=== PATIENT | female | born 1935 | race Caucasian/White ===

== ENCOUNTER 2016-07-17 12:32 | Inpatient (IN) | payer MEDICARE ==
[~2016-07-17] VITALS: Ht 160 cm; Wt 46.4 kg
[2016-07-17] VITALS (13 sets, daily range): BP systolic 104–148; BP diastolic 56–92; PULSE 97–112; RESP 18–20; TEMP 97.6–98.1; O2SAT 95–99
[~2016-07-17 12:32] MED LIST: ADVAI250I PO; ALBU8I INH; ASPI81TA82 PO; ATOR40TA49 PO; BUSP5 PO; D31000CA PO; IPRA0.02 NEB; IRON325T2 PO; LATA.005%O BOTH EYES; VITA10002 PO; Z.0.OXYGENDME NC
[2016-07-17] MEDS ORDERED: methylPREDNISolone SOD SUCC 125 MG/2 ML VIAL IVP ONE (12:45)
[2016-07-17] MEDS ORDERED: SODIUM CHLORIDE 0.9% FLUSH 5 ML FLUSH IVF PRN ×2 (12:45→14:45)
[2016-07-17] MEDS ORDERED: MAGNESIUM SULFATE 1 GM PREMIX 100 ML IV ONE (13:00)
[2016-07-17] MEDS ORDERED: SODIUM CHLOR 0.9% 1000 ML INJ 1,000 ML IV ONE (13:00)
--- NOTE | 2016-07-17 13:00 | PD ---
HPI Chief Complaint: Respiratory Symptoms Time Seen by Provider: 12:44 Travel History International Travel<30 days: No Contact w/Intl Traveler<30days: No Traveled to known affect area: No History of Present Illness HPI Patient is an 80-year-old female with history of COPD who uses 2 L of oxygen continuously, presents to emergency room with complaints of COPD exacerbation. Patient reports that 3 days ago, she has been feeling increasingly short of breath and has been wheezing. Reports that she had increased productive cough with thick greenish yellow sputum. Patient denies fevers or chills. She reports that she tried using her nebulizer with no relief of symptoms. Patient denies chest pain. Reports short of breath at rest as well as on exertion. Patient denies any sick contacts. Patient reports that she still is a smoker at this time. PFSH Past Medical History Anemia: Yes Arthritis: Yes Asthma: No Autoimmune Disease: No Heart Rhythm Problems: No Cancer: Yes (LUNG; RECTAL) Cardiovascular Problems: No High Cholesterol: No Chemotherapy: Yes Chest Pain: No Congestive Heart Failure: No COPD: Yes (2L NC prn) Diabetes: No Diminished Hearing: No Gastrointestinal Disorders: No Glaucoma: Yes Genitourinary: No Hepatitis: No Hiatal Hernia: No Hypertension: Yes Immune Disorder: No Implanted Vascular Access Dvce: No Musculoskeletal: Yes Neurologic: No Psychiatric: No Reproductive: No Respiratory: Yes ( HX LUNG CANCER, RIGHT LOWER LOBECTOMY) Immunizations Current: No Radiation Therapy: Yes (LAST TREATMENT 2008) Sleep Apnea: No Thyroid Disease: Yes (PARATHYROID SURGERY) Menopausal: Yes : 2 Para: 2 Past Surgical History Abdominal Surgery: No Cardiac Surgery: No Ear Surgery: No Endocrine Surgery: Yes (PARATHYROID) Eye Surgery: Yes (BILATERAL CATARACT SX; LASER SX FOR GLAUCOMA) Genitourinary Surgery: No Gynecologic Surgery: Yes (D&C) Hysterectomy: No Neurologic Surgery: No Oral Surgery: No Pacemaker: No Thoracic Surgery: Yes (right and middle lobectomy 1994) Other Surgery: Yes (3/4 OF RIGHT LUNG REMOVED DUE TO CA) Social History Alcohol Use: No Tobacco Use: Yes (2-4 CIGS A DAY) Substance Use: No Allergies-Medications (Allergen,Severity, Reaction): Coded Allergies: Penicillin (Verified Allergy, Severe, Hives, 05/10/16) Reported Meds & Prescriptions Reported Meds & Active Scripts Active Reported [Oxygen ] 2 Liter INH CONTINUOUS Ipratropium Neb (Ipratropium [place]) 0.5 Mg/2.5 Ml Amp 0.5 Mg NEB Q4HR NEB PRN Vitamin B12 Tr (Cyanocobalamin) 1,000 Mcg Tab 1,000 Mcg PO DAILY Vitamin D3 (Cholecalciferol) 1,000 Unit Tab 1,000 Units PO HS Aspirin 81 (Aspirin) 81 Mg Tabdr 81 Mg PO HS Ventolin Hfa 18 GM Inh (Albuterol Sulfate) 90 Mcg/Act Aer 2 Puff INH Q4H PRN Buspirone (Buspirone HCl) 5 Mg Tab 5 Mg PO TID Furosemide 20 Mg Tab 20 Mg PO DAILY PRN Klor-Con 8 (Potassium Chloride) 8 Meq Tab 8 Meq PO DAILY PRN Xalatan Opth Drops (Latanoprost) 0.005% Drops 1 Drop EACH EYE HS Advair Diskus Inh (Fluticasone-Salmeterol Inh) 250-50 Mcg/Blist Aer 1 Puff INH BID Rinse mouth after use. Review of Systems General / Constitutional: No: Fever, Chills Eyes: No: Visual changes HENT: No: Headaches Cardiovascular: No: Chest Pain or Discomfort, Palpitations Respiratory: Positive: Cough, Shortness of Breath, Wheezing Gastrointestinal: No: Abdominal Pain Genitourinary: No: Dysuria Musculoskeletal: No: Pain Skin: No Rash Neurologic: No: Weakness Psychiatric: No: Depression Endocrine: No: Polydipsia Hematologic/Lymphatic: No: Easy Bruising Physical Exam Narrative GENERAL: Patient in moderate distress SKIN: Warm and dry. HEAD: Atraumatic. Normocephalic. EYES: Pupils equal and round. No scleral icterus. No injection or drainage. ENT: No nasal bleeding or discharge. Mucous membranes pink and moist. NECK: Trachea midline. No JVD. CARDIOVASCULAR: Patient tachycardic, No murmur appreciated. RESPIRATORY: Patient with scattered wheezing, patient with increased work of breathing with intercostal retractions on evaluation GASTROINTESTINAL: Abdomen soft, non-tender, nondistended. Hepatic and splenic margins not palpable. MUSCULOSKELETAL: No obvious deformities. No clubbing. No cyanosis. No edema. NEUROLOGICAL: Awake and alert. No obvious cranial nerve deficits. Motor grossly within normal limits. Normal speech. PSYCHIATRIC: Appropriate mood and affect; insight and judgment normal. Data Data Last Documented VS Vital Signs Date Time Temp Pulse Resp B/P Pulse Ox O2 Delivery O2 Flow Rate FiO2 07/17/16 13:14 98 Nasal Cannula 2.00 07/17/16 13:05 20 07/17/16 12:55 102 07/17/16 12:50 98.0 144/80 Orders Complete Blood Count With Diff (07/17/16 12:45) Comprehensive Metabolic Panel (07/17/16 12:45) B-Type Natriuretic Peptide (07/17/16 12:45) Act Partial Throm Time (Ptt) (07/17/16 12:45) Prothrombin Time / Inr (Pt) (07/17/16 12:45) Ckmb (Isoenzyme) Profile (07/17/16 12:45) Troponin I (07/17/16 12:45) Arterial Blood Gas (Abg) (07/17/16 12:45) Urinalysis - C+S If Indicated (07/17/16 12:45) Influenzae A/B Antigen (07/17/16 12:45) Blood Culture (07/17/16 12:45) Iv Access Insert/Monitor (07/17/16 12:45) Electrocardiogram (07/17/16 12:45) Ecg Monitoring (07/17/16 12:45) Oximetry (07/17/16 12:45) Oxygen Administration (07/17/16 12:45) Chest, Single Ap (07/17/16 12:45) Sodium Chloride 0.9% Flush (Ns Flush) (07/17/16 12:45) Methylprednisolone So Succ Inj (Solumedr (07/17/16 12:45) Albuterol-Ipratropium Neb (Duoneb Neb) (07/17/16 12:45) Lactic Acid Sepsis Protocol (07/17/16 12:50) Magnesium Sulfate 1 Gm Premix (Magnesium (07/17/16 13:00) Sodium Chlor 0.9% 1000 Ml Inj (Ns 1000 M (07/17/16 13:00) Levofloxacin 750 Mg Premix Inj (Levaquin (07/17/16 14:15) Labs Laboratory Tests Test 07/17/16 07/17/16 07/17/16 13:00 13:05 14:08 White Blood Count 7.4 TH/MM3 Red Blood Count 4.38 MIL/MM3 Hemoglobin 13.2 GM/DL Hematocrit 40.4 % Mean Corpuscular Volume 92.1 FL Mean Corpuscular Hemoglobin 30.2 PG Mean Corpuscular Hemoglobin 32.8 % Concent Red Cell Distribution Width 14.9 % Platelet Count 209 TH/MM3 Mean Platelet Volume 7.9 FL Neutrophils (%) (Auto) 79.6 % Lymphocytes (%) (Auto) 13.9 % Monocytes (%) (Auto) 5.9 % Eosinophils (%) (Auto) 0.1 % Basophils (%) (Auto) 0.5 % Neutrophils # (Auto) 6.0 TH/MM3 Lymphocytes # (Auto) 1.0 TH/MM3 Monocytes # (Auto) 0.4 TH/MM3 Eosinophils # (Auto) 0.0 TH/MM3 Basophils # (Auto) 0.0 TH/MM3 CBC Comment DIFF FINAL Differential Comment Prothrombin Time 10.5 SEC Prothromb Time International 1.0 RATIO Ratio Activated Partial 27.7 SEC Thromboplast Time Sodium Level 140 MEQ/L Potassium Level 4.1 MEQ/L Chloride Level 101 MEQ/L Carbon Dioxide Level 31.3 MEQ/L Anion Gap 8 MEQ/L Blood Urea Nitrogen 9 MG/DL Creatinine 0.82 MG/DL Estimat Glomerular Filtration 67 ML/MIN Rate Random Glucose 170 MG/DL Lactic Acid Level 2.2 mmol/L Calcium Level 9.1 MG/DL Total Bilirubin 0.4 MG/DL Aspartate Amino Transf 15 U/L (AST/SGOT) Alanine Aminotransferase 16 U/L (ALT/SGPT) Alkaline Phosphatase 77 U/L Total Creatine Kinase 53 U/L Troponin I LESS THAN 0.02 NG/ML B-Type Natriuretic Peptide 174 PG/ML Total Protein 7.7 GM/DL Albumin 3.5 GM/DL Blood Gas Puncture Site LT RADIAL Blood Gas Patient Temperature 98.6 Blood Gas HCO3 28 mmol/L Blood Gas Base Excess 3.8 mmol/L Blood Gas Oxygen Saturation 94 % Arterial Blood pH 7.41 Arterial Blood Partial 46 mmHG Pressure CO2 Arterial Blood Partial 86 mmHG Pressure O2 Arterial Blood Oxygen Content 17.2 Vol % Arterial Blood 1.7 % Carboxyhemoglobin Arterial Blood Methemoglobin 1.1 % Blood Gas Hemoglobin 13.0 G/DL Oxygen Delivery Device NASAL CANNULA Blood Gas Liter Flow 2 L/M Urine Collection Type CLEAN CATCH Urine Color YELLOW Urine Turbidity CLEAR Urine pH 6.5 Urine Specific [place] 1.005 Urine Protein NEG mg/dL Urine Glucose (UA) NEG mg/dL Urine Ketones NEG mg/dL Urine Occult Blood NEG Urine Nitrite NEG Urine Bilirubin NEG Urine Leukocyte Esterase NEG Urine RBC 0-3 /hpf Urine WBC 0-2 /hpf Microscopic Urinalysis Comment CULT NOT INDICATED MDM Medical Decision Making Medical Screen Exam Complete: Yes Emergency Medical Condition: Yes Interpretation(s) EKG at 1235: Sinus tachycardia at 112 bpm, QT/QTc 318/409, nonspecific ST-T wave changes Vital Signs Date Time Temp Pulse Resp B/P Pulse Ox O2 Delivery O2 Flow Rate FiO2 07/17/16 12:50 98.0 102 20 144/80 97 Laboratory Tests Test 07/17/16 07/17/16 13:00 13:05 White Blood Count 7.4 TH/MM3 (4.0-11.0) Red Blood Count 4.38 MIL/MM3 (4.00-5.30) Hemoglobin 13.2 GM/DL (11.6-15.3) Hematocrit 40.4 % (35.0-46.0) Mean Corpuscular Volume 92.1 FL (80.0-100.0) Mean Corpuscular Hemoglobin 30.2 PG (27.0-34.0) Mean Corpuscular Hemoglobin 32.8 % Concent (32.0-36.0) Red Cell Distribution Width 14.9 % (11.6-17.2) Platelet Count 209 TH/MM3 (150-450) Mean Platelet Volume 7.9 FL (7.0-11.0) Neutrophils (%) (Auto) 79.6 % (16.0-70.0) Lymphocytes (%) (Auto) 13.9 % (9.0-44.0) Monocytes (%) (Auto) 5.9 % (0.0-8.0) Eosinophils (%) (Auto) 0.1 % (0.0-4.0) Basophils (%) (Auto) 0.5 % (0.0-2.0) Neutrophils # (Auto) 6.0 TH/MM3 (1.8-7.7) Lymphocytes # (Auto) 1.0 TH/MM3 (1.0-4.8) Monocytes # (Auto) 0.4 TH/MM3 (0-0.9) Eosinophils # (Auto) 0.0 TH/MM3 (0-0.4) Basophils # (Auto) 0.0 TH/MM3 (0-0.2) CBC Comment DIFF FINAL Differential Comment Prothrombin Time 10.5 SEC (9.8-11.6) Prothromb Time International 1.0 RATIO Ratio Activated Partial 27.7 SEC Thromboplast Time (24.3-30.1) Sodium Level 140 MEQ/L (136-145) Potassium Level 4.1 MEQ/L (3.5-5.1) Chloride Level 101 MEQ/L (98-107) Carbon Dioxide Level 31.3 MEQ/L (21.0-32.0) Anion Gap 8 MEQ/L (5-15) Blood Urea Nitrogen 9 MG/DL (7-18) Creatinine 0.82 MG/DL (0.50-1.00) Estimat Glomerular Filtration 67 ML/MIN (>89) Rate Random Glucose 170 MG/DL (74-106) Lactic Acid Level 2.2 mmol/L (0.4-2.0) Calcium Level 9.1 MG/DL (8.5-10.1) Total Bilirubin 0.4 MG/DL (0.2-1.0) Aspartate Amino Transf 15 U/L (15-37) (AST/SGOT) Alanine Aminotransferase 16 U/L (10-53) (ALT/SGPT) Alkaline Phosphatase 77 U/L (45-117) Total Creatine Kinase 53 U/L (26-192) Troponin I LESS THAN 0.02 NG/ML (0.02-0.05) B-Type Natriuretic Peptide 174 PG/ML (0-100) Total Protein 7.7 GM/DL (6.4-8.2) Albumin 3.5 GM/DL (3.4-5.0) Blood Gas Puncture Site LT RADIAL Blood Gas Patient Temperature 98.6 Blood Gas HCO3 28 mmol/L (22-26) Blood Gas Base Excess 3.8 mmol/L (-2-2) Blood Gas Oxygen Saturation 94 % (90-100) Arterial Blood pH 7.41 (7.380-7.420) Arterial Blood Partial 46 mmHG (38-42) Pressure CO2 Arterial Blood Partial 86 mmHG Pressure O2 (61-120) Arterial Blood Oxygen Content 17.2 Vol % (12.0-20.0) Arterial Blood 1.7 % (0-4) Carboxyhemoglobin Arterial Blood Methemoglobin 1.1 % (0-2) Blood Gas Hemoglobin 13.0 G/DL (12.0-16.0) Oxygen Delivery Device NASAL CANNULA Blood Gas Liter Flow 2 L/M Last Impressions Chest X-Ray 07/17/16 1245 Signed Impressions: Service Date/Time: Sunday, July 17, 2016 13:07 - CONCLUSION: Right basilar airspace disease and small right effusion suspected otherwise stable. Holden Rizvi MD Differential Diagnosis COPD exacerbation, pneumonia, influenza, arrhythmias, pneumothorax, electrolyte abnormality, CHF exacerbation Narrative Course Patient is a 80-year-old female with history of COPD who uses 2 L nasal cannula at all times, presents to emergency room with complaints of cough, wheezing, shortness of breath with past 3 days. Upon arrival to the emergency room, patient placed on continuous pulse oximetry as well as continuous cardiac monitoring. EKG obtained which showed sinus tachycardia with not specific ST-T wave changes. Patient afebrile in the emergency room, patient tachycardic with heart rate in 102, IV placed, IV fluids ordered for patient as well as steroids and nebulizer treatments CBC, BMP, blood cultures, influenza, x-ray of chest ordered for further evaluation of symptoms Patient reevaluated, patient still with increased wheezing, patient reports that she is not feeling any better, patient has received IV steroids as well as 3 duo nebs and 1 g of IV magnesium. CBC: wnl BMP: wnl, gfr 67 Lactate: 2.2, mildly elevated, plan to repeat lactate after ivf, pt has been pancultured trop less than 0.02 BNP 174 UA: Negative leuk esterase negative nitrites Influenza negative X-ray of chest: Right basilar airspace disease and small right effusion Patient reports that she is not feeling better, another neb treatment ordered for her, will continue to monitor pt Physician Communication Physician Communication case reviewed with Dr Alfred who accepts pt to service Diagnosis Primary Impression: COPD (chronic obstructive pulmonary disease) with acute bronchitis Admitting Information Admitting Physician Requests: Racquel Crockett DO Jul 17, 2016 13:00
[2016-07-17 13:05] LABS: BASOPHIL % 0.5 % (0.0-2.0); EOSINOPHIL % 0.1 % (0.0-4.0); HEMATOCRIT 40.4 % (35.0-46.0); HEMO FLAGS DIFF FINAL; LYMPH % 13.9 % (9.0-44.0); MEAN CELL VOLUME 92.1 FL (80.0-100.0); MEAN CORPUSCULAR HEMOGLOBIN 30.2 PG (27.0-34.0); MEAN CORPUSCULAR HGB CONC 32.8 % (32.0-36.0); MONO % 5.9 % (0.0-8.0); NEUT % 79.6 % (16.0-70.0); PLATELET COUNT 209 TH/MM3 (150-450); RED BLOOD COUNT 4.38 MIL/MM3 (4.00-5.30); RED CELL DISTRIBUTION WIDTH 14.9 % (11.6-17.2); WHITE BLOOD COUNT 7.4 TH/MM3 (4.0-11.0)
[2016-07-17] MEDS ORDERED: LATA.005%O EACH EYE (13:05)
[2016-07-17] MEDS ORDERED: VITA10004 PO (13:05)
[2016-07-17] MEDS ORDERED: ADVA250A INH (13:05)
[2016-07-17] MEDS ORDERED: IPRA0.02 NEB (13:05)
[2016-07-17] MEDS ORDERED: VITA100018 PO (13:05)
[2016-07-17] MEDS ORDERED: ASPI-110 PO (13:05)
[2016-07-17] MEDS ORDERED: BUSP5TAB PO (13:05)
[2016-07-17] MEDS ORDERED: FURO20TA PO (13:05)
[2016-07-17] MEDS ORDERED: KLOR8TAB PO (13:05)
[2016-07-17] MEDS ORDERED: VENTAER INH (13:05)
[2016-07-17] MEDS ORDERED: Oxygen INH (13:05)
[2016-07-17] MEDS: RESP: ALBUTEROL 2.5 MG/IPRATROPIUM 0.5 MG NEB (SCH) INH ×4 (13:09→19:17)
[2016-07-17 13:13] LABS: CHLORIDE 101 MEQ/L (98-107); POTASSIUM 4.1 MEQ/L (3.5-5.1); SODIUM (NA) 140 MEQ/L (136-145)
[2016-07-17 13:15] LABS: BLOOD GAS BASE EXCESS 3.8 mmol/L (-2-2); BLOOD GAS CARBOXYHEMOGLOBIN 1.7 % (0-4); BLOOD GAS HCO3 28 mmol/L (22-26); BLOOD GAS METHEMOGLOBIN 1.1 % (0-2); BLOOD GAS O2 HGB SATURATION 94 % (90-100); BLOOD GAS OXYGEN CONTENT 17.2 Vol % (12.0-20.0); BLOOD GAS PCO2 46 mmHG (38-42); BLOOD GAS PO2 86 mmHG (61-120); CRITICAL VALUE NO; DRAW SITE LT RADIAL; LITER FLOW 2 L/M; NUMBER OF ARTERIAL PUNCTURES 1; OXYGEN DEVICE NASAL CANNULA; STAT YES; TEMP CORR TO 98.6; ULNAR PULSE PRESENT
[2016-07-17 13:16] LABS: ANION GAP 8 MEQ/L (5-15); BICARBONATE 31.3 MEQ/L (21.0-32.0)
[2016-07-17 13:17] LABS: BLOOD UREA NITROGEN 9 MG/DL (7-18)
[2016-07-17 13:18] LABS: APTT (PATIENT) 27.7 SEC (24.3-30.1); PROTHROMBIN TIME - PATIENT 10.5 SEC (9.8-11.6)
[2016-07-17 13:19] LABS: ALT (GPT) 16 U/L (10-53)
[2016-07-17 13:20] LABS: AST (GOT) 15 U/L (15-37); GLOMERULAR FILTRATION RATE 67 ML/MIN (>89)
[2016-07-17 13:21] LABS: TOTAL BILIRUBIN ADULT 0.4 MG/DL (0.2-1.0)
[2016-07-17 13:22] LABS: ALKALINE PHOSPHATASE 77 U/L (45-117)
[2016-07-17 13:24] LABS: CREATINE KINASE 53 U/L (26-192)
--- NOTE | 2016-07-17 13:24 | RADHPO ---
EXAM DATE/TIME: 07/17/2016 13:07 [place] COMPARISON: CHEST SINGLE AP, May 10, 2016, 12:40. INDICATIONS : Short of breath. Wheezing. MEDICAL HISTORY : Chronic obstructive pulmonary disease. Carcinoma, lung. SURGICAL HISTORY : Lobectomy. ENCOUNTER: Subsequent ACUITY: 3 days PAIN SCORE: 1/10 LOCATION: Bilateral chest FINDINGS: There is scarring in the left upper lung zone with cephalad retraction of the hilum, cardiomegaly and aortic calcification. There is blunting of the right lateral costophrenic angle present. Minimal rig ht basilar airspace disease. CONCLUSION: Right basilar airspace disease and small right effusion suspected otherwise stable. Holden Rizvi MD on July 17, 2016 at 13:22 Board Certified Radiologist. This report was verified electronically.
[2016-07-17] MEDS ORDERED: LEVOFLOXACIN 750 MG PREMIX INJ 150 ML IV ONE (14:15)
[2016-07-17 14:16] LABS: BLOOD, URINE NEG (NEG); GLUCOSE,URINE NEG (NEG); KETONE, URINE NEG (NEG); METHOD OF COLLECTION CLEAN CATCH; NITRITE,URINE NEG (NEG); PH, URINE 6.5 (5.0-8.5)
[2016-07-17 14:17] LABS: URINE COLOR YELLOW (YELLW/STRAW)
[2016-07-17 14:20] LABS: COMMENT (UR) CULT NOT INDICATED; CULTURE IF INDICATED CULT NOT INDICATED; RBC, URINE 0-3 /hpf (0-3); WBC, URINE 0-2 /hpf (0-5)
[2016-07-17] MEDS: RESP: ALBUTEROL 2.5 MG/3 ML NEB (SCH) INH ×2 (14:41→14:42)
[2016-07-17] MEDS ORDERED: RESP: ALBUTEROL 2.5 MG/3 ML NEB (SCH) NEB ONE (14:45)
[2016-07-17] MEDS ORDERED: RESP: ALBUTEROL 2.5 MG/3 ML NEB (PRN) INH (14:45)
[2016-07-17 15:00] LABS: LACTIC ACID GHOST NOT REPORTABLE
[2016-07-17] MEDS: HEPARIN SODIUM - SQ 10,000 UNITS/ML VIAL SQ SCH (15:01)
--- NOTE | 2016-07-17 16:02 | HHI.HP ---
cc: Ania Helm MD [facility] Unknown Admission Diagnosis COPD exacerbation Diagnoses: (1) COPD exacerbation Diagnosis: Principal (2) Hypertension (3) History of lung cancer Chief Complaint: Dyspnea Travel History International Travel<30 Days: No Contact w/Intl Traveler <30 Da: No Traveled to Known Affected Are: No History of Present Illness The patient is an 80-year-old female with history of COPD on chronic oxygen supplementation at home, 2 L continuous. She presented to the emergency department with complaint of worsening shortness of breath over the past 3 days. She has noted increase wheezes as well. Cough is productive of thick greenish/yellowish sputum. Denies fever, chills, night sweats. Denies chest pain. She does continue to smoke 2 cigarettes per day. Review of Systems Constitutional: DENIES: Fever, Chills, Night Sweats Eyes: DENIES: Blurred vision, Vision loss Ears, nose, mouth, throat: DENIES: Hearing loss Respiratory: COMPLAINS OF: Cough, Wheezing, Sputum production, Shortness of breath Cardiovascular: COMPLAINS OF: Dyspnea on Exertion, DENIES: Chest pain, Palpitations, Lower Extremity Edema Gastrointestinal: DENIES: Abdominal pain, Constipation, Diarrhea, Nausea, Vomiting Genitourinary: DENIES: Urinary frequency, Urinary incontinence, Urgency, Hematuria, Dysuria, Nocturia Musculoskeletal: DENIES: Joint pain, Muscle aches Integumentary: DENIES: Pruritus, Rash Hematologic/lymphatic: DENIES: Bruising Neurologic: DENIES: Headache Past Family Social History Past Medical History COPD History of lung cancer Hypertension Past Surgical History Right lung lobectomy Bilateral cataract surgery Parathyroid surgery D&C Reported Medications [Oxygen ] 2 Liter INH CONTINUOUS Ipratropium Neb (Ipratropium [place]) 0.5 Mg/2.5 Ml Amp 0.5 Mg NEB Q4HR NEB PRN Vitamin B12 Tr (Cyanocobalamin) 1,000 Mcg Tab 1,000 Mcg PO DAILY Vitamin D3 (Cholecalciferol) 1,000 Unit Tab 1,000 Units PO HS Aspirin 81 (Aspirin) 81 Mg Tabdr 81 Mg PO HS Ventolin Hfa 18 GM Inh (Albuterol Sulfate) 90 Mcg/Act Aer 2 Puff INH Q4H PRN Buspirone (Buspirone HCl) 5 Mg Tab 5 Mg PO TID Furosemide 20 Mg Tab 20 Mg PO DAILY PRN Klor-Con 8 (Potassium Chloride) 8 Meq Tab 8 Meq PO DAILY PRN Xalatan Opth Drops (Latanoprost) 0.005% Drops 1 Drop EACH EYE HS Advair Diskus Inh (Fluticasone-Salmeterol Inh) 250-50 Mcg/Blist Aer 1 Puff INH BID Rinse mouth after use. Allergies: Coded Allergies: Penicillin (Verified Allergy, Severe, Hives, 05/10/16) Family History Heart disease Social History Smokes 2 cigarettes per day. Had smoked 1 pack per day for more than 50 years. Denies alcohol or illicit drug use. Physical Exam Vital Signs Vital Signs Date Time Temp Pulse Resp B/P Pulse Ox O2 Delivery O2 Flow Rate FiO2 07/17/16 13:14 98 Nasal Cannula 2.00 07/17/16 13:05 20 99 Nasal Cannula 2 07/17/16 13:05 99 Nasal Cannula 2 07/17/16 12:55 102 20 99 Nasal Cannula 2 07/17/16 12:50 98.0 102 20 144/80 97 Physical Exam GENERAL: Thin elderly female in no acute distress. HEENT: Normocephalic, atraumatic. Pupils equal, round and reactive. Extraocular movements intact. No scleral icterus. No injection or drainage. Oropharynx is clear. Mucous membranes are moist. CARDIOVASCULAR: Regular rate and rhythm without murmurs, gallops, or rubs. RESPIRATORY: Diffuse wheeze. Breathing is somewhat labored.. GASTROINTESTINAL: Abdomen soft, non-tender, nondistended. EXTREMITIES: No lower extremity edema. No calf tenderness. PSYCH: Alert and oriented x 3. Laboratory Laboratory Tests Test 07/17/16 07/17/16 07/17/16 13:00 13:05 14:08 White Blood Count 7.4 Red Blood Count 4.38 Hemoglobin 13.2 Hematocrit 40.4 Mean Corpuscular Volume 92.1 Mean Corpuscular Hemoglobin 30.2 Mean Corpuscular Hemoglobin 32.8 Concent Red Cell Distribution Width 14.9 Platelet Count 209 Mean Platelet Volume 7.9 Neutrophils (%) (Auto) 79.6 Lymphocytes (%) (Auto) 13.9 Monocytes (%) (Auto) 5.9 Eosinophils (%) (Auto) 0.1 Basophils (%) (Auto) 0.5 Neutrophils # (Auto) 6.0 Lymphocytes # (Auto) 1.0 Monocytes # (Auto) 0.4 Eosinophils # (Auto) 0.0 Basophils # (Auto) 0.0 CBC Comment DIFF FINAL Differential Comment Prothrombin Time 10.5 Prothromb Time International 1.0 Ratio Activated Partial 27.7 Thromboplast Time Sodium Level 140 Potassium Level 4.1 Chloride Level 101 Carbon Dioxide Level 31.3 Anion Gap 8 Blood Urea Nitrogen 9 Creatinine 0.82 Estimat Glomerular Filtration 67 Rate Random Glucose 170 Lactic Acid Level 2.2 Calcium Level 9.1 Total Bilirubin 0.4 Aspartate Amino Transf 15 (AST/SGOT) Alanine Aminotransferase 16 (ALT/SGPT) Alkaline Phosphatase 77 Total Creatine Kinase 53 Troponin I LESS THAN 0.02 B-Type Natriuretic Peptide 174 Total Protein 7.7 Albumin 3.5 Blood Gas Puncture Site LT RADIAL Blood Gas Patient Temperature 98.6 Blood Gas HCO3 28 Blood Gas Base Excess 3.8 Blood Gas Oxygen Saturation 94 Arterial Blood pH 7.41 Arterial Blood Partial 46 Pressure CO2 Arterial Blood Partial 86 Pressure O2 Arterial Blood Oxygen Content 17.2 Arterial Blood 1.7 Carboxyhemoglobin Arterial Blood Methemoglobin 1.1 Blood Gas Hemoglobin 13.0 Oxygen Delivery Device NASAL CANNULA Blood Gas Liter Flow 2 Urine Collection Type CLEAN CATCH Urine Color YELLOW Urine Turbidity CLEAR Urine pH 6.5 Urine Specific [place] 1.005 Urine Protein NEG Urine Glucose (UA) NEG Urine Ketones NEG Urine Occult Blood NEG Urine Nitrite NEG Urine Bilirubin NEG Urine Leukocyte Esterase NEG Urine RBC 0-3 Urine WBC 0-2 Microscopic Urinalysis Comment CULT NOT INDICATED Date/Time Procedure Status Source Growth 07/17/16 14:00 Influenza Types A,B Antigen (DAGOBERTO) - Final Complete Nasal Aspirate NEGATIVE FOR FLU A AND B ANTIGEN.... 07/17/16 13:02 Aerobic Blood Culture Received Blood Peripheral Pending 07/17/16 13:02 Anaerobic Blood Culture Received Blood Peripheral Pending Result Diagram: 07/17/16 1300 07/17/16 1300 Imaging Last Impressions Chest X-Ray 07/17/16 1245 Signed Impressions: Service Date/Time: Sunday, July 17, 2016 13:07 - CONCLUSION: Right basilar airspace disease and small right effusion suspected otherwise stable. Holden Rizvi MD Assessment and Plan Assessment and Plan 1. COPD exacerbation: Continue steroids, oxygen, bronchodilators. 2. Pneumonia: Right basilar airspace disease on chest x-ray. Continue antibiotics, oxygen. 3. History of lung cancer: Follow-up with oncology as outpatient. 4. DVT prophylaxis: Heparin. Abdi Alfred MD Jul 17, 2016 16:02
[2016-07-17] MEDS: busPIRone HCL 5 MG TAB PO SCH (18:01)
[2016-07-17] MEDS: BUDESONIDE-FORMOTEROL 160/4.5 MCG INHALER INH SCH (20:52)
[2016-07-17] MEDS: SODIUM CHLORIDE 0.9% FLUSH 5 ML FLUSH IVF SCH (20:52)
[2016-07-17] MEDS: methylPREDNISolone SOD SUCC 125 MG/2 ML VIAL IVP SCH (20:53)
[2016-07-17] MEDS: LATANOPROST 0.005% OPHT SOLN 2.5 ML BTL EACH EYE SCH (20:53)
[2016-07-17] MEDS: CHOLECALCIFEROL (VIT D3) 1000 UNIT TAB PO SCH (20:53)
[2016-07-17] MEDS: ASPIRIN EC 81 MG TABEC PO SCH (20:59)
[2016-07-18] VITALS (8 sets, daily range): BP systolic 130–160; BP diastolic 73–106; PULSE 101–110; RESP 16–20; TEMP 95.5–98.3; O2SAT 92–99
[2016-07-18] MEDS: HEPARIN SODIUM - SQ 10,000 UNITS/ML VIAL SQ SCH ×2 (02:28→15:01)
[2016-07-18] MEDS: methylPREDNISolone SOD SUCC 125 MG/2 ML VIAL IVP SCH ×4 (02:28→22:47)
[2016-07-18] MEDS: RESP: ALBUTEROL 2.5 MG/IPRATROPIUM 0.5 MG NEB (SCH) INH ×4 (04:00→21:55)
[2016-07-18 06:26] LABS: POTASSIUM 4.1 MEQ/L (3.5-5.1)
[2016-07-18 06:34] LABS: BICARBONATE 28.1 MEQ/L (21.0-32.0)
[2016-07-18] MEDS: BUDESONIDE-FORMOTEROL 160/4.5 MCG INHALER INH SCH ×2 (08:59→22:45)
[2016-07-18] MEDS: busPIRone HCL 5 MG TAB PO SCH ×3 (09:00→17:45)
[2016-07-18] MEDS: SODIUM CHLORIDE 0.9% FLUSH 5 ML FLUSH IVF SCH ×2 (09:00→22:48)
[2016-07-18] MEDS: CYANOCOBALAMIN 1,000 MCG TAB PO SCH (09:00)
[2016-07-18] MEDS: LEVOFLOXACIN 750 MG PREMIX INJ 150 ML IV SCH (12:16)
--- NOTE | 2016-07-18 14:47 | HHI.PR ---
Subjective Remarks Mrs. Swanson states that she does not feel any better than today other than she feels a little stronger and was able to get up to the bedside commode. She feels shaky and unsteady on her feet. She is still short of breath with coughing and wheeze. Objective Vitals Vital Signs Date Time Temp Pulse Resp B/P Pulse Ox O2 Delivery O2 Flow Rate FiO2 07/18/16 09:37 98 Nasal Cannula 2.00 07/18/16 09:00 101 07/18/16 08:00 97.6 102 18 130/73 96 07/18/16 04:00 98.3 105 16 138/75 94 07/17/16 23:57 97.6 97 20 148/92 97 07/17/16 20:10 103 07/17/16 20:00 98.1 102 18 128/75 96 07/17/16 19:19 95 Nasal Cannula 2.00 07/17/16 18:00 112 20 136/67 96 Nasal Cannula 2 07/17/16 17:00 103 20 125/74 96 Nasal Cannula 2 07/17/16 16:00 110 20 104/59 97 Nasal Cannula 2 07/17/16 15:20 20 97 Nasal Cannula 2 07/17/16 15:00 97 20 110/56 97 Nasal Cannula 2 I/O 07/17/16 07/17/16 07/17/16 07/18/16 07/18/16 07/18/16 07:00 15:00 23:00 07:00 15:00 23:00 Intake Total 1250 ml 720 ml Output Total 300 ml Balance 1250 ml 420 ml Intake Oral 720 ml IV Total 1250 ml Output Urine Total 300 ml # Voids 3 # Bowel Movements 0 Result Diagram: 07/17/16 1300 07/18/16 0555 Objective Remarks GENERAL: Very pleasant petite, elderly female in no apparent distress. SKIN: Warm and dry. HEAD: Normocephalic. EYES: No scleral icterus. No injection or drainage. NECK: Supple, trachea midline. No JVD or lymphadenopathy. CARDIOVASCULAR: Regular rate and rhythm without murmurs, gallops, or rubs. RESPIRATORY: The patient has prolonged expiratory phase with poor air exchange with scattered rhonchi bilaterally. No wheezing. Mild increased work of breathing on nasal cannula. Breath sounds equal bilaterally. GASTROINTESTINAL: Abdomen soft, non-tender, nondistended. EXTREMITIES: No cyanosis, or edema. NEUROLOGICAL: Awake, alert, and oriented x 3. Non-focal. A/P Problem List: (1) COPD exacerbation ICD Code: J44.1 Status: Acute (2) Hypertension ICD Code: I10 Status: Acute (3) History of lung cancer ICD Code: Z85.118 Status: Acute Assessment and Plan 1. COPD exacerbation with chronic respiratory failure on 2 L nasal cannula continuously at home: No improvement today. We'll continue Solu-Medrol, bronchodilators, Levaquin and oxygen via nasal cannula. 2. Right lower lobe pneumonia. Will check sputum cultures. Will continue Levaquin. 3. History of lung cancer with right lung lobectomy. 4. Anxiety. Continue Buspar. 5. DVT prophylaxis: Heparin. Kate Rivero MD Jul 18, 2016 14:47
--- NOTE | 2016-07-18 17:43 | EKG ---
Date Performed: 07/17/2016 Time Performed: 12:35:46 PTAGE: 80 years EKG: Sinus tachycardia with PVC(s) with PAC(s) Short ME interval Possible left atrial abnormalit y Rightward axis Inferior ST-T changes are nonspecific When compared to previous tracing, the patient is now Tachycardic, and the ST segment has improved. Borderline ECG PREVIOUS TRACING : 05/10/2016 20.53 DOCTOR: Lanette Estrada Interpretating Date/Time 07/18/2016 17:41:22
[2016-07-18] MEDS: ASPIRIN EC 81 MG TABEC PO SCH (22:45)
[2016-07-18] MEDS: LATANOPROST 0.005% OPHT SOLN 2.5 ML BTL EACH EYE SCH (22:45)
[2016-07-18] MEDS: CHOLECALCIFEROL (VIT D3) 1000 UNIT TAB PO SCH (22:46)
[2016-07-19] VITALS (10 sets, daily range): BP systolic 137–147; BP diastolic 83–90; PULSE 77–122; RESP 17–23; TEMP 96.5–98; O2SAT 92–97
[2016-07-19] MEDS: methylPREDNISolone SOD SUCC 125 MG/2 ML VIAL IVP SCH ×2 (02:30→09:19)
[2016-07-19] MEDS: HEPARIN SODIUM - SQ 10,000 UNITS/ML VIAL SQ SCH ×2 (02:30→14:06)
[2016-07-19] MEDS: RESP: ALBUTEROL 2.5 MG/IPRATROPIUM 0.5 MG NEB (SCH) INH ×4 (04:40→21:26)
[2016-07-19] MEDS: BUDESONIDE-FORMOTEROL 160/4.5 MCG INHALER INH SCH ×2 (09:00→21:52)
[2016-07-19] MEDS: busPIRone HCL 5 MG TAB PO SCH ×3 (09:19→17:12)
[2016-07-19] MEDS: CYANOCOBALAMIN 1,000 MCG TAB PO SCH (09:19)
[2016-07-19] MEDS: SODIUM CHLORIDE 0.9% FLUSH 5 ML FLUSH IVF SCH ×2 (09:20→21:54)
[2016-07-19] MEDS: LEVOFLOXACIN 750 MG PREMIX INJ 150 ML IV SCH (12:00)
--- NOTE | 2016-07-19 12:05 | HHI.PR ---
Subjective Remarks Patient seen and examined today with Dr. Rivero. Patient states that her breathing is improved this morning. However she does feel her heart race whenever she exerts herself. Objective Vitals Vital Signs Date Time Temp Pulse Resp B/P Pulse Ox O2 Delivery O2 Flow Rate FiO2 07/19/16 09:33 97 Nasal Cannula 2.00 07/19/16 08:15 118 07/19/16 08:00 98.0 77 17 141/90 94 07/19/16 04:40 92 Nasal Cannula 2.00 07/19/16 04:00 97.4 109 23 137/83 94 07/19/16 00:00 97.6 122 22 147/88 94 07/18/16 21:55 92 Nasal Cannula 2.00 07/18/16 20:04 102 07/18/16 20:00 97.8 105 20 136/81 99 I/O 07/18/16 07/18/16 07/18/16 07/19/16 07/19/16 07/19/16 07:00 15:00 23:00 07:00 15:00 23:00 Intake Total 720 ml 825 ml 0 ml 0 ml Output Total 300 ml Balance 420 ml 825 ml 0 ml 0 ml Intake Oral 720 ml 650 ml IV Total 175 ml 0 ml 0 ml Output Urine Total 300 ml # Voids 3 5 2 2 # Bowel Movements 0 2 0 0 Result Diagram: 07/17/16 1300 07/18/16 0555 Objective Remarks GENERAL: Well-developed, well-nourished, in no acute distress. alert and orientated HEENT: Head is normocephalic without any lesions or masses noted. Facial features are symmetric. Eyes: Extraocular muscles are intact. Conjunctivae were clear. NECK: Supple without any masses. Trachea midline no deviation. No JVD, CARDIAC: Regular rhythm, regular rate. S1/S2 are heard. No murmurs gallops or rubs. LUNGS: Clear to auscultation bilaterally. No wheeze, rhonchi or rales. No use of accessory muscles on inspiration or expiration. ABDOMEN: Soft, nontender. Nondistended. Bowel sounds heard in all 4 quadrants. No organomegaly or masses. Negative rebound, negative guarding EXTREMITIES: No edema, pulses are equal bilaterally. No cyanosis or clubbing NEUROLOGY: Mood and affect appear appropriate. Cranial nerves II through XII grossly intact. Moving all extremities, speech is clear Urinary Catheter: No Vascular Central Line Catheter: No A/P Assessment and Plan COPD exacerbation with chronic respiratory failure on 2 L nasal cannula continuously at home: Patient does indicate improvement today. No longer has any wheeze. We will start to wean Solu-Medrol, continue bronchodilators, Levaquin and oxygen via nasal cannula. Right lower lobe pneumonia. Awaiting sputum culture. Will continue Levaquin. History of lung cancer with right lung lobectomy. Anxiety. Continue Buspar. Discharge Planning Discharge planning tomorrow if patient continues to improve Abdi Asher Jul 19, 2016 12:05
--- NOTE | 2016-07-19 12:13 | HHI.FF ---
Face to Face Verification Diagnosis: (1) COPD exacerbation (2) Dyspnea Physical Therapy Order: Evaluate and Treat, Improve ambulation, Strength and gait training Home Health Nursing Order: Medical education Signs/symptoms of disease process Oxygen administration education Nursing assessment with vital signs I have seen patient Chasity Swanson on 07/19/16. My clinical findings support the need for the requested home health care services because: Patient has SOB I certify that my clinical findings support that this patient is homebound because: Hx COPD- exertion dyspnea/weakness Abdi Asher Jul 19, 2016 12:12
[2016-07-19] MEDS: LATANOPROST 0.005% OPHT SOLN 2.5 ML BTL EACH EYE SCH (21:52)
[2016-07-19] MEDS: CHOLECALCIFEROL (VIT D3) 1000 UNIT TAB PO SCH (21:53)
[2016-07-19] MEDS: methylPREDNISolone SOD SUCC 40 MG/1 ML VIAL IV SCH (21:53)
[2016-07-19] MEDS: ASPIRIN EC 81 MG TABEC PO SCH (21:54)
[2016-07-20] VITALS: BP 149/92; PULSE 114; RESP 18; TEMP 97.2; O2SAT 95
[2016-07-20] MEDS: HEPARIN SODIUM - SQ 10,000 UNITS/ML VIAL SQ SCH (02:46)
[2016-07-20 04:00] VITALS: BP 126/80; PULSE 106; RESP 18; TEMP 96.5; O2SAT 95
[2016-07-20] MEDS: RESP: ALBUTEROL 2.5 MG/IPRATROPIUM 0.5 MG NEB (SCH) INH ×2 (04:00→10:12)
[2016-07-20 08:00] VITALS: BP 104/62; PULSE 109; RESP 16; TEMP 97.6; O2SAT 100
--- NOTE | 2016-07-20 09:40 | HHI.PR ---
Subjective Remarks Patient seen and examined today with Dr. Rivero. Patient states that her breathing is improved. Patient states that she ready to go home. Objective Vitals Vital Signs Date Time Temp Pulse Resp B/P Pulse Ox O2 Delivery O2 Flow Rate FiO2 07/20/16 04:00 96.5 106 18 126/80 95 07/20/16 00:00 97.2 114 18 149/92 95 07/19/16 21:23 97 Nasal Cannula 2.00 07/19/16 20:00 96.5 105 18 145/87 94 07/19/16 20:00 108 07/19/16 16:00 98.0 100 17 138/90 96 07/19/16 12:00 97.1 105 18 147/86 95 I/O 07/19/16 07/19/16 07/19/16 07/20/16 07/20/16 07/20/16 07:00 15:00 23:00 07:00 15:00 23:00 Intake Total 0 ml 150 ml Balance 0 ml 150 ml IV Total 0 ml 150 ml # Voids 2 # Bowel Movements 0 Result Diagram: 07/17/16 1300 07/18/16 0555 Objective Remarks GENERAL: Well-developed, well-nourished, in no acute distress. alert and orientated HEENT: Head is normocephalic without any lesions or masses noted. Facial features are symmetric. Eyes: Extraocular muscles are intact. Conjunctivae were clear. NECK: Supple without any masses. Trachea midline no deviation. No JVD, CARDIAC: Regular rhythm, regular rate. S1/S2 are heard. No murmurs gallops or rubs. LUNGS: Clear to auscultation bilaterally. No wheeze, rhonchi or rales. No use of accessory muscles on inspiration or expiration. ABDOMEN: Soft, nontender. Nondistended. Bowel sounds heard in all 4 quadrants. No organomegaly or masses. Negative rebound, negative guarding EXTREMITIES: No edema, pulses are equal bilaterally. No cyanosis or clubbing NEUROLOGY: Mood and affect appear appropriate. Cranial nerves II through XII grossly intact. Moving all extremities, speech is clear Urinary Catheter: No Vascular Central Line Catheter: No A/P Assessment and Plan COPD exacerbation with chronic respiratory failure on 2 L nasal cannula continuously at home: Patient does indicate improvement today. No longer has any wheeze. Continue to wean Solu-Medrol, continue bronchodilators, Levaquin and oxygen via nasal cannula. Right lower lobe pneumonia. Awaiting sputum culture. Will continue Levaquin. History of lung cancer with right lung lobectomy. Anxiety. Continue Buspar. DVT prevention. Heparin Written by Abdi Asher PA-C, acting as scribe for Dr. Rivero on 07/20/16 at 1050. The documentation accurately reflects the work and decisions performed face-to- face by Dr. Rivero on 07/20/16 at 1050. Discharge Planning Discharge home in stable condition Abdi Asher Jul 20, 2016 09:40
[2016-07-20] MEDS ORDERED: PRED5PAK PO (09:44)
[2016-07-20] MEDS ORDERED: LEVA500T PO ×2 (09:44→11:09)
--- NOTE | 2016-07-20 09:46 | HHI.DCPOC ---
Discharge Care Plan Diagnosis: (1) Pneumonia involving right lung (2) COPD exacerbation Goals to Promote Your Health * To prevent worsening of your condition and complications * To maintain your health at the optimal level Directions to Meet Your Goals Take your medications as prescribed Follow your dietary instruction Follow activity as directed Keep your appointments as scheduled Take your immunizations and boosters as scheduled If your symptoms worsen call your PCP, if no PCP go to Urgent Care Center or Emergency Room Smoking is Dangerous to Your Health. Avoid second hand smoke Call the 24-hour hour crisis hotline for domestic abuse at Abdi Asher Jul 20, 2016 09:46
--- NOTE | 2016-07-20 09:49 | HHI.DS ---
Discharge Summary Admission Date Jul 17, 2016 at 14:39 Discharge Date: Jul 20, 2016 Admitting Diagnosis COPD exacerbation (1) COPD exacerbation ICD Code: J44.1 Diagnosis: Principal (2) Hypertension ICD Code: I10 (3) History of lung cancer ICD Code: Z85.118 (4) Pneumonia involving right lung ICD Code: J18.9 (5) Chronic respiratory failure ICD Code: J96.10 Procedures None Brief History - From Admission The patient is an 80-year-old female with history of COPD on chronic oxygen supplementation at home, 2 L continuous. She presented to the emergency department with complaint of worsening shortness of breath over the past 3 days. She has noted increase wheezes as well. Cough is productive of thick greenish/yellowish sputum. Denies fever, chills, night sweats. Denies chest pain. She does continue to smoke 2 cigarettes per day. CBC/BMP: 07/17/16 1300 07/18/16 0555 Significant Findings Laboratory Tests Test 07/17/16 07/17/16 07/18/16 13:00 13:05 05:55 Neutrophils (%) (Auto) 79.6 % (16.0-70.0) Estimat Glomerular Filtration 67 ML/MIN (>89) 79 ML/MIN (>89) Rate Random Glucose 170 MG/DL 169 MG/DL (74-106) (74-106) Lactic Acid Level 2.2 mmol/L (0.4-2.0) Troponin I LESS THAN 0.02 NG/ML (0.02-0.05) B-Type Natriuretic Peptide 174 PG/ML (0-100) Blood Gas HCO3 28 mmol/L (22-26) Blood Gas Base Excess 3.8 mmol/L (-2-2) Arterial Blood Partial 46 mmHG (38-42) Pressure CO2 Chloride Level 108 MEQ/L (98-107) Imaging Last Impressions Chest X-Ray 07/17/16 3535 Signed Impressions: Service Date/Time: Sunday, July 17, 2016 13:07 - CONCLUSION: Right basilar airspace disease and small right effusion suspected otherwise stable. Holden Rizvi MD PE at Discharge GENERAL: Well-developed, well-nourished, in no acute distress. alert and orientated HEENT: Head is normocephalic without any lesions or masses noted. Facial features are symmetric. Eyes: Extraocular muscles are intact. Conjunctivae were clear. NECK: Supple without any masses. Trachea midline no deviation. No JVD, CARDIAC: Regular rhythm, regular rate. S1/S2 are heard. No murmurs gallops or rubs. LUNGS: Clear to auscultation bilaterally. No wheeze, rhonchi or rales. No use of accessory muscles on inspiration or expiration. ABDOMEN: Soft, nontender. Nondistended. Bowel sounds heard in all 4 quadrants. No organomegaly or masses. Negative rebound, negative guarding EXTREMITIES: No edema, pulses are equal bilaterally. No cyanosis or clubbing NEUROLOGY: Mood and affect appear appropriate. Cranial nerves II through XII grossly intact. Moving all extremities, speech is clear Hospital Course 80-year-old female. Presented to hospital because of worsening shortness of breath for 3 days. Patient does have chronic respiratory failure on home oxygen. Chronic affective pulmonary disease. Chest was performed which did show right basilar infiltrate, effusion. Patient was admitted the hospital with treatment for many acquired pneumonia, chronic affective pulmonary disease exacerbation. Patient started on Levaquin for antibiotics, Solu-Medrol, oxygen supplementation, duo nebs. Patient tolerated treatment well. Her lung sounds improved throughout her stay in the hospital. Continue to wean steroids with no worsening of her respiratory status. Patient is at baseline at this time. Case management consulted to arrange home health care. Will plan discharge with home health care once arrangements made. Pt Condition on Discharge: Stable Discharge Disposition: Disch w/ Home Health Serv Discharge Time: > 30 minutes Discharge Instructions DIET: Follow Instructions for: Heart Healthy Diet Activities you can perform: Regular-No Restrictions Activities to Avoid: Driving for 24 hrs Follow up Referrals: PCP Follow-up - 1 Week New Medications: Levofloxacin (Levaquin) 500 Mg Tab 500 MG PO DAILY Infection Days 7 Ref 0 TAB Prednisone (21) 5 mg tab Dose Pack (Prednisone (21) 5 mg tab Dose Pack) 5 Mg Dspk 5 MG PO DIRECTED Inflammation #1 Ref 0 DSPK Continued Medications: Albuterol 18 GM Inh (Ventolin Hfa 18 GM Inh) 90 Mcg/Act Aer 2 PUFF INH Q4H PRN SHORTNESS OF BREATH #1 Ref [address] (Aspirin 81) 81 Mg Tabdr 81 MG PO HS Ref 0 TAB Buspirone (Buspirone) 5 Mg Tab 5 MG PO TID Anxiety Ref 0 TAB Cholecalciferol (Vitamin D3) 1,000 Unit Tab 1000 UNITS PO HS Nutritional Supplement #1 Ref 0 BOTTLE Cyanocobalamin (Vitamin B12 Tr) 1,000 Mcg Tab 1000 MCG PO DAILY #1 BOTTLE Fluticasone-Salmeterol Inh (Advair Diskus Inh) 250-50 Mcg/Blist Aer 1 PUFF INH BID Rinse mouth after use. #1 Ref 0 INHALER Furosemide (Furosemide) 20 Mg Tab 20 MG PO DAILY PRN swelling Ref 0 TAB Ipratropium Neb (Ipratropium Neb) 0.5 Mg/2.5 Ml Amp 0.5 MG NEB Q4HR NEB PRN SHORTNESS OF BREATH Ref 0 NEBULE Latanoprost Opth Drops (Xalatan Opth Drops) 0.005% Drops 1 DROP EACH EYE HS Glaucoma #2.5 Ref 0 ML Potassium Chloride ER (Klor-Con 8) 8 Meq Tab 8 MEQ PO DAILY PRN ELECTROLYTE REPLACEMENT Ref 0 TAB ([Oxygen ]) 2 LITER INH CONTINUOUS Additional Information Written by Abdi Asher PA-C, acting as scribe for Dr. Rivero on 07/20/16 at 1050. The documentation accurately reflects the work and decisions performed face-to- face by Dr. Rivero on 07/20/16 at 1050. Abdi Asher Jul 20, 2016 09:49 Kate Rivero MD Jul 20, 2016 12:01
[2016-07-20] MEDS: BUDESONIDE-FORMOTEROL 160/4.5 MCG INHALER INH SCH (10:07)
[2016-07-20] MEDS: methylPREDNISolone SOD SUCC 40 MG/1 ML VIAL IV SCH (10:07)
[2016-07-20] MEDS: SODIUM CHLORIDE 0.9% FLUSH 5 ML FLUSH IVF SCH (10:07)
[2016-07-20] MEDS: CYANOCOBALAMIN 1,000 MCG TAB PO SCH (10:07)
[2016-07-20] MEDS: busPIRone HCL 5 MG TAB PO SCH (10:07)
[2016-07-20 10:13] VITALS: O2SAT 96
[2016-07-20 12:00] VITALS: BP 130/78; PULSE 98; RESP 16; TEMP 98.1; O2SAT 97
[2016-07-20] MEDS: LEVOFLOXACIN 750 MG PREMIX INJ 150 ML IV SCH (12:00)
== END 2016-07-20 13:00 | disposition home health service (06) | DRG 190 ==
LOC: PHED 12:32 → OBSVTOIN 14:39 → PHEDA 14:39 → PH3A 18:28
PROVIDERS: ADMIT Family Medicine; ATTEND Family Medicine
DX: J44.0 Chronic obstructive pulmonary disease with (acute) lower respiratory infection (principal); J18.9 Pneumonia, unspecified organism; J96.10 Chronic respiratory failure, unspecified whether with hypoxia or hypercapnia; Z99.81 Dependence on supplemental oxygen; J44.1 Chronic obstructive pulmonary disease with (acute) exacerbation; I10 Essential (primary) hypertension; H40.9 Unspecified glaucoma; M19.90 Unspecified osteoarthritis, unspecified site; R00.0 Tachycardia, unspecified; F41.9 Anxiety disorder, unspecified; F17.210 Nicotine dependence, cigarettes, uncomplicated; Z85.118 Personal history of other malignant neoplasm of bronchus and lung; Z88.0 Allergy status to penicillin; Z90.2 Acquired absence of lung [part of]; Z92.21 Personal history of antineoplastic chemotherapy; Z92.3 Personal history of irradiation
CPT/HCPCS: 36600; 71010; 80048; 80053; 81001; 82550; 82805; 83605; 83880; 84484; 85025; 85610; 85730; 87040; 87804; 93005; 94150; 94640; 94664; 96365; 96375; J1644; J1956; J2920; J2930; J3475; J7030; J7613

== ENCOUNTER 2016-12-13 07:26 | Emergency (ER) | payer MEDICARE ==
[~2016-12-13] VITALS: Ht 160 cm; Wt 53.0 kg
[~2016-12-13 07:26] MED LIST changes: +ADVA250A INH; -ADVAI250I PO; -ALBU8I INH; +ASPI-110 PO; -ASPI81TA82 PO; -ATOR40TA49 PO; -BUSP5 PO; +BUSP5TAB PO; -D31000CA PO; +FURO20TA PO; -IRON325T2 PO; +KLOR8TAB PO; -LATA.005%O BOTH EYES; +LATA.005%O EACH EYE; +LEVA500T PO; +Oxygen INH; +PRED5PAK PO; +VENTAER INH; +VITA100018 PO; -VITA10002 PO; +VITA10004 PO; -Z.0.OXYGENDME NC
[2016-12-13 07:29] VITALS: BP 183/86; PULSE 110; RESP 18; TEMP 97.7; O2SAT 95
[2016-12-13] MEDS ORDERED: MORPHINE SULFATE 4 MG/ML INJ IV PUSH ONE (08:00)
--- NOTE | 2016-12-13 08:02 | PD ---
HPI Chief Complaint: Pain: Acute or Chronic Time Seen by Provider: 07:56 Travel History International Travel<30 days: No Contact w/Intl Traveler<30days: No Traveled to known affect area: No History of Present Illness HPI 81yo F with PMH of COPD on home O2, lung CA (cancer free with outpatient follow up) presents to the ED with c/o generalized pain for 2 days. Pt states my whole body hurts. Denies any trauma or fall. Denies any fever, sob, vomiting, focal weakness or numbness. Took alleve with no improvement of pain. PFSH Past Medical History Anemia: Yes Arthritis: Yes Asthma: No Autoimmune Disease: No Heart Rhythm Problems: No Cancer: Yes (LUNG; RECTAL) Cardiovascular Problems: No High Cholesterol: No Chemotherapy: Yes (8 years ago) Chest Pain: No Congestive Heart Failure: No COPD: Yes (2L NC ) Diabetes: No Diminished Hearing: No Gastrointestinal Disorders: No Glaucoma: Yes Genitourinary: No Hepatitis: No Hiatal Hernia: No Hypertension: Yes Immune Disorder: No Implanted Vascular Access Dvce: No Musculoskeletal: Yes Neurologic: No Psychiatric: No Reproductive: No Respiratory: Yes (COPD, O2 at home) Immunizations Current: No Radiation Therapy: Yes (LAST TREATMENT 2008) Sleep Apnea: No Thyroid Disease: Yes (PARATHYROID SURGERY) ?: Not Menopausal: Yes : 2 Para: 2 Past Surgical History Abdominal Surgery: No Cardiac Surgery: No Ear Surgery: No Endocrine Surgery: Yes (PARATHYROID) Eye Surgery: Yes (BILATERAL CATARACT SX; LASER SX FOR GLAUCOMA) Genitourinary Surgery: No Gynecologic Surgery: Yes (D&C) Hysterectomy: No Neurologic Surgery: No Oral Surgery: No Pacemaker: No Thoracic Surgery: Yes (right and middle lobectomy 1994) Other Surgery: Yes (3/4 OF RIGHT LUNG REMOVED DUE TO CA, saliva gland left jaw removed) Social History Alcohol Use: No Tobacco Use: Yes (2 CIGS A DAY) Substance Use: No Allergies-Medications (Allergen,Severity, Reaction): Coded Allergies: Penicillin (Verified Allergy, Severe, Hives, 12/13/16) Reported Meds & Prescriptions Reported Meds & Active Scripts Active Tylenol (Acetaminophen) 325 Mg Tab 325 Mg PO Q4H PRN Prednisone (21) 5 mg tab Dose Pack (Prednisone) 5 Mg Dspk 5 Mg PO DIRECTED Reported Feosol (Ferrous Sulfate) 200 Mg Tab 65 Mg PO BIDPC Non-Aspirin Extra Strength (Acetaminophen) 500 Mg Tab 500 Mg PO Q4-6H PRN Vitamin O36-Jhmsz Acid (Cobalamine Combinations) 500-400 Mcg Tab 1 Tab PO DAILY Azithromycin 250 Mg Tab 250 Mg PO DAILY Ipratropium Neb (Ipratropium [place]) 0.5 Mg/2.5 Ml Amp 0.5 Mg NEB Q4HR NEB PRN Vitamin D3 (Cholecalciferol) 1,000 Unit Tab 1,000 Units PO HS Aspirin 81 (Aspirin) 81 Mg Tabdr 81 Mg PO HS Ventolin Hfa 18 GM Inh (Albuterol Sulfate) 90 Mcg/Act Aer 2 Puff INH Q4H PRN Buspirone (Buspirone HCl) 5 Mg Tab 5 Mg PO TID Furosemide 20 Mg Tab 20 Mg PO DAILY PRN Klor-Con 8 (Potassium Chloride) 8 Meq Tab 8 Meq PO DAILY PRN Advair Diskus Inh (Fluticasone-Salmeterol Inh) 250-50 Mcg/Blist Aer 1 Puff INH BID Rinse mouth after use. Review of Systems Except as stated in HPI: all other systems reviewed are Neg Physical Exam Narrative GENERAL: 81yo F not in distress. SKIN: Focused skin assessment warm/dry. HEAD: Atraumatic. Normocephalic. EYES: Pupils equal and round. No scleral icterus. No injection or drainage. ENT: No nasal bleeding or discharge. Mucous membranes pink and moist. NECK: Trachea midline. No JVD. CARDIOVASCULAR: Regular rate and rhythm. No murmur appreciated. RESPIRATORY: No accessory muscle use. Clear to auscultation. Breath sounds equal bilaterally. GASTROINTESTINAL: Abdomen soft, non-tender, nondistended. No rebound tenderness or guarding. MUSCULOSKELETAL: FROM in all extremities. +TTP bilateral medial scapula. No midline ttp thoracic or lumbar spine. NEUROLOGICAL: Awake and alert. No obvious cranial nerve deficits. Motor grossly within normal limits. Normal speech. PSYCHIATRIC: Appropriate mood and affect; insight and judgment normal. Data Data Last Documented VS Vital Signs Date Time Temp Pulse Resp B/P Pulse Ox O2 Delivery O2 Flow Rate FiO2 12/13/16 09:35 18 12/13/16 08:28 87 141/68 99 Nasal Cannula 2 12/13/16 07:29 97.7 Orders Electrocardiogram (12/13/16 07:56) Basic Metabolic Panel (Bmp) (12/13/16 07:56) Ckmb (Isoenzyme) Profile (12/13/16 07:56) Complete Blood Count With Diff (12/13/16 07:56) Prothrombin Time / Inr (Pt) (12/13/16 07:56) Act Partial Throm Time (Ptt) (12/13/16 07:56) Troponin I (12/13/16 07:56) Chest, Single Ap (12/13/16 07:56) Morphine Inj (Morphine Inj) (12/13/16 08:00) Ondansetron Inj (Zofran Inj) (12/13/16 08:15) Labs Laboratory Tests Test 12/13/16 08:10 White Blood Count 5.4 TH/MM3 Red Blood Count 4.49 MIL/MM3 Hemoglobin 13.7 GM/DL Hematocrit 42.6 % Mean Corpuscular Volume 94.8 FL Mean Corpuscular Hemoglobin 30.5 PG Mean Corpuscular Hemoglobin 32.2 % Concent Red Cell Distribution Width 14.7 % Platelet Count 137 TH/MM3 Mean Platelet Volume 9.1 FL Neutrophils (%) (Auto) 64.7 % Lymphocytes (%) (Auto) 24.0 % Monocytes (%) (Auto) 10.1 % Eosinophils (%) (Auto) 0.9 % Basophils (%) (Auto) 0.3 % Neutrophils # (Auto) 3.5 TH/MM3 Lymphocytes # (Auto) 1.3 TH/MM3 Monocytes # (Auto) 0.5 TH/MM3 Eosinophils # (Auto) 0.1 TH/MM3 Basophils # (Auto) 0.0 TH/MM3 CBC Comment DIFF FINAL Differential Comment Prothrombin Time 10.7 SEC Prothromb Time International 1.0 RATIO Ratio Activated Partial 26.3 SEC Thromboplast Time Sodium Level 139 MEQ/L Potassium Level 4.0 MEQ/L Chloride Level 102 MEQ/L Carbon Dioxide Level 29.1 MEQ/L Anion Gap 8 MEQ/L Blood Urea Nitrogen 13 MG/DL Creatinine 0.84 MG/DL Estimat Glomerular Filtration 65 ML/MIN Rate Random Glucose 156 MG/DL Calcium Level 9.2 MG/DL Total Creatine Kinase 56 U/L Troponin I LESS THAN 0.02 NG/ML MDM Medical Decision Making Medical Screen Exam Complete: Yes Emergency Medical Condition: Yes Interpretation(s) EKG: NSR 87bpm. Normal axis. Laboratory Tests Test 12/13/16 08:10 White Blood Count 5.4 TH/MM3 (4.0-11.0) Red Blood Count 4.49 MIL/MM3 (4.00-5.30) Hemoglobin 13.7 GM/DL (11.6-15.3) Hematocrit 42.6 % (35.0-46.0) Mean Corpuscular Volume 94.8 FL (80.0-100.0) Mean Corpuscular Hemoglobin 30.5 PG (27.0-34.0) Mean Corpuscular Hemoglobin 32.2 % Concent (32.0-36.0) Red Cell Distribution Width 14.7 % (11.6-17.2) Platelet Count 137 TH/MM3 (150-450) Mean Platelet Volume 9.1 FL (7.0-11.0) Neutrophils (%) (Auto) 64.7 % (16.0-70.0) Lymphocytes (%) (Auto) 24.0 % (9.0-44.0) Monocytes (%) (Auto) 10.1 % (0.0-8.0) Eosinophils (%) (Auto) 0.9 % (0.0-4.0) Basophils (%) (Auto) 0.3 % (0.0-2.0) Neutrophils # (Auto) 3.5 TH/MM3 (1.8-7.7) Lymphocytes # (Auto) 1.3 TH/MM3 (1.0-4.8) Monocytes # (Auto) 0.5 TH/MM3 (0-0.9) Eosinophils # (Auto) 0.1 TH/MM3 (0-0.4) Basophils # (Auto) 0.0 TH/MM3 (0-0.2) CBC Comment DIFF FINAL Differential Comment Prothrombin Time 10.7 SEC (9.8-11.6) Prothromb Time International 1.0 RATIO Ratio Activated Partial 26.3 SEC Thromboplast Time (24.3-30.1) Sodium Level 139 MEQ/L (136-145) Potassium Level 4.0 MEQ/L (3.5-5.1) Chloride Level 102 MEQ/L (98-107) Carbon Dioxide Level 29.1 MEQ/L (21.0-32.0) Anion Gap 8 MEQ/L (5-15) Blood Urea Nitrogen 13 MG/DL (7-18) Creatinine 0.84 MG/DL (0.50-1.00) Estimat Glomerular Filtration 65 ML/MIN (>89) Rate Random Glucose 156 MG/DL (74-106) Calcium Level 9.2 MG/DL (8.5-10.1) Total Creatine Kinase 56 U/L (26-192) Troponin I LESS THAN 0.02 NG/ML (0.02-0.05) Last Impressions Chest X-Ray 12/13/16 0756 Signed Impressions: Service Date/Time: Tuesday, December 13, 2016 09:03 - CONCLUSION: No acute cardiopulmonary abnormality is identified. There is a stable thick-walled cavity versus bulla at the apex of the left hemithorax. Duong Lieberman MD Differential Diagnosis Musculoskeletal pain vs. arthritis vs. pathologic fracture Narrative Course 81yo F with pain in her entire body. During review of systems, she said a little bit of chest pain across her chest at times. Pt states yes to almost all review of system. Chest pain is very atypical. No worsening sob. No diaphoresis. Pt does complain of nausea. States she has abdominal pain but no tenderness at all during exam. Labs reviewed, no leukocytosis. BMP unremarkable. Troponin negative. CXR showed no acute cardiopulmonary abnormality. Stable thick walled cavity versus bulla at apex of left hemithorax. Pt has lung CA. Pt knows about this finding. Pt reevaluated at bedside after morphine 2mg and zofran 4mg IV and feels better. Pain has improved. Pt is medically stable and appears nontoxic. Do not feel chest pain is cardiac. Denies any current chest pain or sob. She really had generalized pain. Return precautions given. Diagnosis Primary Impression: Generalized pain Patient Instructions: General Instructions Departure Forms: Tests/Procedures Additional Instructions: Please follow up with your PMD in 1-2 days. Return to the ED if symptoms worsen. Med/Other Pt SpecificInfo: Prescription(s) given Scripts Acetaminophen (Tylenol)325 Mg [id number] Mg PO Q4H PRN (PAIN SCALE 1 TO 4) #20 TAB Ref 0 Prov:Bethany Crowell DO 12/13/16 Disposition: 01 DISCHARGE HOME Condition: Stable Bethany Crowell December 13, 2016 08:02
[2016-12-13] MEDS ORDERED: ONDANSETRON HCL 4 MG/2 ML VIAL IV PUSH ONE (08:15)
[2016-12-13 08:28] VITALS: BP 141/68; PULSE 87; RESP 18; O2SAT 99
[2016-12-13 08:38] LABS: AUTOMATED NEUTROPHIL # 3.5 TH/MM3 (1.8-7.7); BASOPHIL % 0.3 % (0.0-2.0); EOSINOPHIL # 0.1 TH/MM3 (0-0.4); EOSINOPHIL % 0.9 % (0.0-4.0); HEMATOCRIT 42.6 % (35.0-46.0); HEMO FLAGS DIFF FINAL; LYMPHOCYTE # 1.3 TH/MM3 (1.0-4.8); MEAN CELL VOLUME 94.8 FL (80.0-100.0); MEAN CORPUSCULAR HEMOGLOBIN 30.5 PG (27.0-34.0); MEAN CORPUSCULAR HGB CONC 32.2 % (32.0-36.0); MONO % 10.1 % (0.0-8.0); NEUT % 64.7 % (16.0-70.0); PLATELET COUNT 137 TH/MM3 (150-450); RED BLOOD COUNT 4.49 MIL/MM3 (4.00-5.30); RED CELL DISTRIBUTION WIDTH 14.7 % (11.6-17.2); WHITE BLOOD COUNT 5.4 TH/MM3 (4.0-11.0)
[2016-12-13] MEDS ORDERED: NON-500T10 PO (08:41)
[2016-12-13] MEDS ORDERED: VITATAB43 PO (08:41)
[2016-12-13] MEDS ORDERED: AZIT250T3 PO (08:41)
[2016-12-13] MEDS ORDERED: FERR200T PO (08:41)
[2016-12-13 08:52] LABS: ANION GAP 8 MEQ/L (5-15); BICARBONATE 29.1 MEQ/L (21.0-32.0); BLOOD UREA NITROGEN 13 MG/DL (7-18); CHLORIDE 102 MEQ/L (98-107); GLOMERULAR FILTRATION RATE 65 ML/MIN (>89); SODIUM (NA) 139 MEQ/L (136-145)
[2016-12-13 08:56] LABS: CREATINE KINASE 56 U/L (26-192)
[2016-12-13 09:00] LABS: APTT (PATIENT) 26.3 SEC (24.3-30.1); PROTHROMBIN TIME - PATIENT 10.7 SEC (9.8-11.6)
--- NOTE | 2016-12-13 09:33 | RADRPT ---
EXAM DATE/TIME: 12/13/2016 09:03 [facility] COMPARISON: CT PULMONARY ANGIOGRAM, May 10, 2016, 15:30. CHEST SINGLE AP, July 17, 2016, 13:07. INDICATIONS : Chest pain. MEDICAL HISTORY : Carcinoma, lung. Chronic obstructive pulmonary disease. H/O bilateral lung cancer. SURGICAL HISTORY : part pf right lung removed. ENCOUNTER: Initial ACUITY: 1 day PAIN SCORE: 8/10 LOCATION: Bilateral chest FINDINGS: Portable AP view the chest demonstrates a normal-sized cardiac silhouette with calcification of the a bradley. There is stable superior retraction of the left hilum with mildly thick walled bulla versus cav ity at the apex of the left hemithorax. The no effusion, consolidation, or pneumothorax is identified otherwise. Bones and soft tissues demonstrate no acute finding. CONCLUSION: No acute cardiopulmonary abnormality is identified. There is a stable thick-walled cavity versus bull a at the apex of the left hemithorax. Duong Lieberman MD on December 13, 2016 at 9:28 Board Certified Radiologist. This report was verified electronically.
[2016-12-13] MEDS ORDERED: TYLE325T PO (09:46)
[2016-12-13 10:49] VITALS: BP 133/84; PULSE 84; RESP 18; O2SAT 99
--- NOTE | 2016-12-13 10:54 | EKG ---
Date Performed: 12/13/2016 Time Performed: 08:03:34 PTAGE: 81 years EKG: Sinus rhythm WITH SHORT [place] INTERVAL POSSIBLE RIGHT VENTRICULAR CONDUCTION DELAY MINIMAL ST DEPRESSION BORDERLINE ECG PREVIOUS TRACING : 07/17/2016 12.35 No significant change from previous tracing noted. DOCTOR: Panchito Valentin Interpretating Date/Time 12/13/2016 10:52:59
== END 2016-12-13 10:50 | disposition home or self-care (01) ==
LOC: NEPE 07:26
DX: R52 Pain, unspecified (principal); J44.9 Chronic obstructive pulmonary disease, unspecified; I10 Essential (primary) hypertension; F17.210 Nicotine dependence, cigarettes, uncomplicated; R07.89 Other chest pain; Z79.899 Other long term (current) drug therapy; Z85.118 Personal history of other malignant neoplasm of bronchus and lung; Z99.81 Dependence on supplemental oxygen
CPT/HCPCS: 71010; 80048; 82550; 84484; 85025; 85610; 85730; 93005; 96374; 96375; 99285; J2270; J2405

== ENCOUNTER 2016-12-15 18:15 | Emergency (ER) | payer MEDICARE ==
[~2016-12-15] VITALS: Ht 160 cm; Wt 52.0 kg
[~2016-12-15 18:15] MED LIST changes: +AZIT250T3 PO; +FERR200T PO; -LATA.005%O EACH EYE; -LEVA500T PO; +NON-500T10 PO; -Oxygen INH; +TYLE325T PO; -VITA10004 PO; +VITATAB43 PO
[2016-12-15 18:17] VITALS: BP 112/74; PULSE 65; RESP 15; TEMP 97.8; O2SAT 95
--- NOTE | 2016-12-15 18:25 | PD ---
Physical Exam Time Seen by Provider: 18:22 Narrative 81yo F c/o continued "allover" back pain. +N, dizziness, and Insomnia. Was seen here Monday for the same complaint per patient. Patient seen in triage. VS reviewed. Awaiting bed placement. Data Data Last Documented VS Vital Signs Date Time Temp Pulse Resp B/P Pulse Ox O2 Delivery O2 Flow Rate FiO2 12/15/16 18:17 97.8 65 15 112/74 95 Nasal Cannula 2 MDM Supervised Visit with AGUSTIN: Chayito Blood Dec 15, 2016 18:25
[2016-12-15 19:55] VITALS: BP 153/79; PULSE 80; RESP 18; O2SAT 98
[2016-12-15] MEDS ORDERED: FERR65TA PO (20:03)
[2016-12-15] MEDS ORDERED: LATA.005%O EACH EYE (20:03)
[2016-12-15] MEDS ORDERED: ACETAMINOPHEN/HYDROcodone 325 MG/5 MG TAB PO ONE (20:15)
[2016-12-15] MEDS ORDERED: ONDANSETRON ODT 4 MG TAB PO ONE (20:15)
--- NOTE | 2016-12-15 20:22 | PD ---
HPI . Back pain Chief Complaint: Back/ Neck Pain or Injury Time Seen by Provider: 20:12 Travel History International Travel<30 days: No Contact w/Intl Traveler<30days: No Traveled to known affect area: No History of Present Illness HPI Patient presents complaining with diffuse back pain. She reports onset about a week ago. She states that her pain is exacerbated by moving. She reports no relieving factors. She states that the pain is severe. She states that she was seen here for this a few days ago. She states that she was given morphine while she was here. She states that she has had dizziness and nausea since then. In addition, the patient is complaining with insomnia related to her back pain. PFSH Past Medical History Anemia: Yes Arthritis: Yes Asthma: No Autoimmune Disease: No Heart Rhythm Problems: No Cancer: Yes (LUNG; RECTAL) Cardiovascular Problems: No High Cholesterol: No Chemotherapy: Yes (8 years ago) Chest Pain: No Congestive Heart Failure: No COPD: Yes (2L NC AT NIGHT) Diabetes: No Patient Takes Glucophage: No Diminished Hearing: No Gastrointestinal Disorders: No Glaucoma: Yes Genitourinary: No Hepatitis: No Hiatal Hernia: No Hypertension: Yes Immune Disorder: No Implanted Vascular Access Dvce: No Musculoskeletal: Yes Neurologic: No Psychiatric: No Reproductive: No Respiratory: Yes (COPD, O2 at home) Immunizations Current: Yes Radiation Therapy: Yes (LAST TREATMENT 2008) Sleep Apnea: No Thyroid Disease: Yes (PARATHYROID SURGERY) Tetanus Vaccination: > 5 Years Influenza Vaccination: Yes ?: Not Menopausal: Yes : 2 Para: 2 Past Surgical History Abdominal Surgery: No Cardiac Surgery: No Ear Surgery: No Endocrine Surgery: Yes (PARATHYROID) Eye Surgery: Yes (BILATERAL CATARACT SX; LASER SX FOR GLAUCOMA) Genitourinary Surgery: No Gynecologic Surgery: Yes (D&C) Hysterectomy: No Neurologic Surgery: No Oral Surgery: No Pacemaker: No Thoracic Surgery: Yes (right and middle lobectomy 1994) Other Surgery: Yes (3/4 OF RIGHT LUNG REMOVED DUE TO CA, saliva gland left jaw removed) Social History Alcohol Use: No Tobacco Use: Yes (1 CIGS A DAY) Substance Use: No Allergies-Medications (Allergen,Severity, Reaction): Coded Allergies: Penicillin (Verified Allergy, Severe, Hives, 12/13/16) Reported Meds & Prescriptions Reported Meds & Active Scripts Active Tylenol (Acetaminophen) 325 Mg Tab 325 Mg PO Q4H PRN Reported Xalatan Opth Drops (Latanoprost) 0.005% Drops 1 Drop EACH EYE HS Feosol (Ferrous Sulfate) 65 Mg Tab 65 Mg PO BIDPC Vitamin L60-Gpffu Acid (Cobalamine Combinations) 500-400 Mcg Tab 1 Tab PO DAILY Azithromycin 250 Mg Tab 250 Mg PO DAILY Ipratropium Neb (Ipratropium [place]) 0.5 Mg/2.5 Ml Amp 0.5 Mg NEB Q4HR NEB PRN Vitamin D3 (Cholecalciferol) 1,000 Unit Tab 1,000 Units PO HS Aspirin 81 (Aspirin) 81 Mg Tabdr 81 Mg PO HS Ventolin Hfa 18 GM Inh (Albuterol Sulfate) 90 Mcg/Act Aer 2 Puff INH Q4H PRN Buspirone (Buspirone HCl) 5 Mg Tab 5 Mg PO TID Furosemide 20 Mg Tab 20 Mg PO DAILY PRN Klor-Con 8 (Potassium Chloride) 8 Meq Tab 8 Meq PO DAILY PRN Advair Diskus Inh (Fluticasone-Salmeterol Inh) 250-50 Mcg/Blist Aer 1 Puff INH BID Rinse mouth after use. Review of Systems Except as stated in HPI: all other systems reviewed are Neg General / Constitutional: No: Fever, Chills HENT: Positive: Lightheadedness Cardiovascular: No: Chest Pain or Discomfort Respiratory: No: Shortness of Breath Gastrointestinal: Positive: Nausea, Vomiting (patient reports "a little vomiting."), No: Diarrhea, Abdominal Pain Genitourinary: No: Urgency, Frequency, Dysuria Musculoskeletal: Positive: Pain (diffuse back pain) Psychiatric: Positive: Other (insomnia) Physical Exam Narrative GENERAL: Patient is sitting comfortably on the stretcher with oxygen in place. SKIN: Warm and dry. HEAD: Atraumatic. Normocephalic. EYES: Pupils equal and round. Extraocular movements are intact. ENT: No nasal bleeding or discharge. Mucous membranes pink and moist. NECK: Trachea midline. Neck is supple. CARDIOVASCULAR: Regular rate and rhythm. Heart sounds are normal. RESPIRATORY: No accessory muscle use. Lungs are clear with full air movement throughout. GASTROINTESTINAL: Abdomen soft, non-tender, nondistended. MUSCULOSKELETAL: No obvious deformities. No edema. I am unable to elicit any tenderness to percussion along her spine. NEUROLOGICAL: Awake and alert. No obvious cranial nerve deficits. Motor grossly within normal limits. Normal speech. PSYCHIATRIC: Appropriate mood and affect; insight and judgment normal. Data Data Last Documented VS Vital Signs Date Time Temp Pulse Resp B/P Pulse Ox O2 Delivery O2 Flow Rate FiO2 12/15/16 19:55 80 18 153/79 98 Room Air 12/15/16 18:[address] Cerv Spine W/O Contrast (12/15/16 20:14) Ct Thor Spine W/O Contrast (12/15/16 20:14) Ct Lumb Spine W/O Contrast (12/15/16 20:14) Ondansetron Odt (Zofran Odt) (12/15/16 20:15) Acetamin-Hydrocod 325-5 Mg ([place] 5-325 (12/15/16 20:15) MDM Medical Decision Making Medical Screen Exam Complete: Yes Emergency Medical Condition: Yes Medical Record Reviewed: Yes (patient was seen here on 12/13. She had a CBC, BMP, cardiac enzymes and chest x-ray which were all negative. She was given morphine, 2 mg IV. She was subsequently discharged home.) Differential Diagnosis Differential diagnosis includes but is not limited to muscular low back pain, DDD, spinal stenosis, epidural abscess, sciatica, kidney infection or stone. Narrative Course Patient presents complaining with diffuse back pain. She does not have any concerning physical findings or symptoms such as fever, saddle anesthesia, leg weakness. She was just seen here 2 days ago and had a negative cardiac workup. Her complaint at that time was chest pain as well as "pain all over." Last Impressions Thoracic Spine CT 12/15/162013 Signed Impressions: Service Date/Time: December 20:50 - CONCLUSION: 1. Diffuse degenerative disease without acute abnormality. 2. Emphysematous changes. 3. Thick walled cavitary lesion in the left lung apex. This likely relates to a bulla with prior infection. It is stable in appearance from the prior study. Naif Rojas Jr., MD Lumbar Spine CT 12/15/162013 Signed Impressions: Service Date/Time: December 20:50 - CONCLUSION: 1. Multilevel degenerative changes with areas of narrowing the central canal particularly at L4-L5. 2. AAA. This measures approximately 4 cm. It is only partially visualized on this study. Naif Rojas Jr., MD Cervical Spine CT 12/15/162013 Signed Impressions: Service Date/Time: December 20:47 - CONCLUSION: 1. Multilevel degenerative changes as detailed at each level in the above discussion. 2. No acute abnormality. 3. Carotid artery atherosclerotic calcifications. Naif Rojas Jr., MD Diagnosis Primary Impression: Back pain Qualified Code: M54.9 - Acute bilateral back pain, unspecified back location Additional Impressions: Osteoarthritis Qualified Code: M47.819 - Osteoarthritis of spine without myelopathy or radiculopathy, unspecified spinal region Nausea Dizziness Patient Instructions: Arthritis (ED), General Instructions Med/Other Pt SpecificInfo: Prescription(s) given Scripts Tramadol 50 Mg Tab50 Mg PO Q4H PRN (PAIN) #12 TAB Ref 0 Prov:Alexus Peña MD 12/15/16 Prednisone (48) 10 mg tab Dose Pack 10 Mg Dspk10 Mg PO DIRECTED #1 DSPK Ref 0 Prov:Alexus Peña MD 12/15/16 Disposition: 01 DISCHARGE HOME Condition: Stable Alexus Peña MD Dec 15, 2016 20:22
--- NOTE | 2016-12-15 21:19 | RADRPT ---
EXAM DATE/TIME: 12/15/2016 20:47 [facility] COMPARISON: No previous studies available for comparison. INDICATIONS : Neck and back pain. RADIATION DOSE: 33.07 CTDIvol (mGy) MEDICAL HISTORY : Carcinoma, lung. Carcinoma, rectal. SURGICAL HISTORY : None. ENCOUNTER: Initial ACUITY: 1 day PAIN SCALE: 5/10 LOCATION: Paraspinal TECHNIQUE: Volumetric scanning of the cervical spine was performed. Multiplanar reconstructions in the sagittal, coronal and oblique axial planes were performed. Using automated exposure control and adjustment o f the mA and/or kV according to patient size, radiation dose was kept as low as reasonably achievable to obtain optimal diagnostic quality images. FINDINGS: VERTEBRAE: Normal vertebral body height. ALIGNMENT: A mild grade 1 anterolisthesis of C4 on C5. Calcified plaque involving the carotid arteries bilaterally. C2-C3: A central bulge. No abutment of the cord or central canal stenosis. Neural foramina are patent. C3-C4: A central bulge. No abutment of the cord or central canal stenosis. Neural foramina are patent. C4-C5: A central bulge. No abutment of the cord or central canal stenosis. Neural foramina are patent. C5-C6: There is a broad-based disc osteophyte complex. This just touches the ventral portion of the cord. Bi lateral lateral recess and neural foraminal narrowing. Bony uncovertebral hypertrophy observed. C6-C7: There is a broad-based disc osteophyte complex. This just touches the ventral portion of the cord. Bi lateral lateral recess and neural foraminal narrowing. Bony uncovertebral hypertrophy observed. C7-T1: The bony spinal canal is normal in size. No evidence of disc bulge or herniation. The neural forami na are bilaterally patent. CONCLUSION: 1. Multilevel degenerative changes as detailed at each level in the above discussion. 2. No acute abnormality. 3. Carotid artery atherosclerotic calcifications. Naif Rojas Jr., MD on December 15, 2016 at 21:14 Board Certified Radiologist. This report was verified electronically.
--- NOTE | 2016-12-15 21:30 | RADRPT ---
EXAM DATE/TIME: 12/15/2016 20:50 [facility] COMPARISON: CT PULMONARY ANGIOGRAM, May 10, 2016, 15:30. INDICATIONS : Back pain. RADIATION DOSE: 31.69 CTDIvol (mGy) ; Combined studies - Thoracic Spine/Lumbar Spine MEDICAL HISTORY : Carcinoma, lung. Carcinoma, rectal. SURGICAL HISTORY : None. ENCOUNTER: Initial ACUITY: 1 day PAIN SCALE: 5/10 LOCATION: Paraspinal TECHNIQUE: Volumetric scanning of the thoracic spine was performed. Multiplanar reconstructions in the sagittal , coronal and oblique axial planes were performed. Using automated exposure control and adjustment o f the mA and/or kV according to patient size, radiation dose was kept as low as reasonably achievable to obtain optimal diagnostic quality images. FINDINGS: The vertebral bodies of the thoracic spine are in normal alignment without evidence of subluxation. Vertebral body height is maintained. No fractures are seen. Diffuse disc space narrowing or osteophy te production. Emphysematous changes bilaterally. Prior right upper lobe lobectomy. Enlarged thick walled cavitary l esion involving the left apex. T1-T2: Normal. T2-T3: The thecal sac has a normal diameter. No evidence of disc bulge or protrusion. T3-T4: The thecal sac has a normal diameter. No evidence of disc bulge or protrusion. T4-T5: The thecal sac has a normal diameter. No evidence of disc bulge or protrusion. T5-T6: The thecal sac has a normal diameter. No evidence of disc bulge or protrusion. T6-T7: The thecal sac has a normal diameter. No evidence of disc bulge or protrusion. T7-T8: The thecal sac has a normal diameter. No evidence of disc bulge or protrusion. T8-T9: The thecal sac has a normal diameter. No evidence of disc bulge or protrusion. T9-T10: The thecal sac has a normal diameter. No evidence of disc bulge or protrusion. T10-T11: The thecal sac has a normal diameter. No evidence of disc bulge or protrusion. T11-T12: The thecal sac has a normal diameter. No evidence of disc bulge or protrusion. T12-L1: The thecal sac has a normal diameter. No evidence of disc bulge or protrusion. CONCLUSION: 1. Diffuse degenerative disease without acute abnormality. 2. Emphysematous changes. 3. Thick walled cavitary lesion in the left lung apex. This likely relates to a bulla with prior infe ction. It is stable in appearance from the prior study. Naif Rojas Jr., MD on December 15, 2016 at 21:23 Board Certified Radiologist. This report was verified electronically.
--- NOTE | 2016-12-15 21:35 | RADRPT ---
EXAM DATE/TIME: 12/15/2016 20:50 [facility] COMPARISON: No previous studies available for comparison. INDICATIONS : Back pain. RADIATION DOSE: 31.69 CTDIvol (mGy) ; Combined studies - Thoracic Spine/Lumbar Spine MEDICAL HISTORY : Carcinoma, lung. Carcinoma, rectal. SURGICAL HISTORY : None. ENCOUNTER: Initial ACUITY: 1 day PAIN SCALE: 5/10 LOCATION: Paraspinal TECHNIQUE: Volumetric scanning of the lumbar spine was performed. Multiplanar reconstructions in the sagittal, coronal and oblique axial planes were performed. Using automated exposure control and adjustment of the mA and/or kV according to patient size, radiation dose was kept as low as reasonably achievable t o obtain optimal diagnostic quality images. FINDINGS: VERTEBRAE: Normal vertebral body height. There is a smoothly corticated triangular ossification involving anteri or superior endplate of L4. As it relates to old trauma or an unfused ring apophysis. ALIGNMENT: No evidence of subluxation. Aneurysmal change of the infrarenal aorta is partially seen. It measures approximately 4 cm in diamet er. T12-L1: The thecal sac has a normal diameter. No evidence of disc bulge or protrusion. The neural foramina are patent bilaterally. L1-L2: The thecal sac has a normal diameter. No evidence of disc bulge or protrusion. The neural foramina are patent bilaterally. L2-L3: The thecal sac has a normal diameter. No evidence of disc bulge or protrusion. The neural foramina are patent bilaterally. L3-L4: There is a broad-based disc bulge. Moderate ligamentum flavum hypertrophy and bony hypertrophy of the facets. Narrowing of the left lateral recess. Right lateral recess and central canal are patent. Chandan ral foramina are patent. L4-L5: There is a broad-based disc bulge. Moderate ligamentum flavum hypertrophy and bony hypertrophy of the facets. Narrowing of the central canal and lateral recesses bilaterally. Narrowing of the neural for amen without impingement. L5-S1: A broad-based disc bulge. Lateral recesses and central canal are patent. Moderate ligament flavum hyp ertrophy of the facets. Narrowing of the neural foramina particularly on the right without overt impi ngement. CONCLUSION: 1. Multilevel degenerative changes with areas of narrowing the central canal particularly at L4-L5. 2. AAA. This measures approximately 4 cm. It is only partially visualized on this study. Naif Rojas Jr., MD on December 15, 2016 at 21:28 Board Certified Radiologist. This report was verified electronically.
[2016-12-15 21:46] VITALS: BP 125/58; PULSE 82; RESP 16; O2SAT 96
[2016-12-15] MEDS ORDERED: PRED10PA2 PO (21:51)
[2016-12-15] MEDS ORDERED: TRAM50TA PO (21:51)
== END 2016-12-15 22:07 | disposition home or self-care (01) ==
LOC: NEPE 18:15
DX: M54.9 Dorsalgia, unspecified (principal); M47.819 Spondylosis without myelopathy or radiculopathy, site unspecified; R11.0 Nausea; R42 Dizziness and giddiness; I10 Essential (primary) hypertension; E07.9 Disorder of thyroid, unspecified; Z72.0 Tobacco use; Z86.2 Personal history of diseases of the blood and blood-forming organs and certain disorders involving the immune mechanism; Z87.39 Personal history of other diseases of the musculoskeletal system and connective tissue; Z87.09 Personal history of other diseases of the respiratory system; Z86.69 Personal history of other diseases of the nervous system and sense organs
CPT/HCPCS: 72125; 72128; 72131; 99285

== ENCOUNTER 2017-01-14 10:36 | Emergency (ER) | payer MEDICARE ==
[~2017-01-14] VITALS: Ht 160 cm; Wt 51.3 kg
[~2017-01-14 10:36] MED LIST changes: -FERR200T PO; +FERR65TA PO; +LATA.005%O EACH EYE; -NON-500T10 PO; +PRED10PA2 PO; -PRED5PAK PO; +TRAM50TA PO
[2017-01-14 10:39] VITALS: BP 114/62; PULSE 101; RESP 19; TEMP 98.4; O2SAT 91
[2017-01-14] MEDS ORDERED: RESP: ALBUTEROL 2.5 MG/IPRATROPIUM 0.5 MG NEB (SCH) INH ONE (11:00)
--- NOTE | 2017-01-14 11:00 | PD ---
HPI Chief Complaint: Respiratory Symptoms Time Seen by Provider: 10:46 Travel History International Travel<30 days: No Contact w/Intl Traveler<30days: No Traveled to known affect area: No History of Present Illness HPI 81-year-old female complains of shortness of breath and coughing. Patient has history COPD on chronic O2 supplementation at home, 2 L nasal cannula. Patient also has history of lung cancer. Patient states that she started having increasing short of breath for the past 3 weeks. Patient states that she has productive cough intermittently for the past 3 weeks also. Patient states that she has thick greenish yellowish sputum. Patient was seen at a walk-in clinic recently and had chest x-ray done and EKG done. Patient also was seen by personal physician recently and given Z-José Miguel. Patient states that she radiation of Z-José Miguel week ago. Patient denies any fever chills. Patient denies any chest pain. Patient denies any nausea vomiting diarrhea. PFSH Past Medical History Anemia: Yes Arthritis: Yes Asthma: No Autoimmune Disease: No Heart Rhythm Problems: No Cancer: Yes (LUNG; RECTAL) Cardiovascular Problems: No High Cholesterol: No Chemotherapy: Yes (8 years ago) Chest Pain: No Congestive Heart Failure: No COPD: Yes (2L NC AT NIGHT) Diabetes: No Diminished Hearing: No Gastrointestinal Disorders: No Glaucoma: Yes Genitourinary: No Hepatitis: No Hiatal Hernia: No Hypertension: Yes Immune Disorder: No Implanted Vascular Access Dvce: No Musculoskeletal: Yes Neurologic: No Psychiatric: No Reproductive: No Respiratory: Yes (COPD, O2 at home) Immunizations Current: Yes Radiation Therapy: Yes (LAST TREATMENT 2008) Sleep Apnea: No Thyroid Disease: Yes (PARATHYROID SURGERY) ?: Not Menopausal: Yes : 2 Para: 2 Past Surgical History Abdominal Surgery: No Cardiac Surgery: No Ear Surgery: No Endocrine Surgery: Yes (PARATHYROID) Eye Surgery: Yes (BILATERAL CATARACT SX; LASER SX FOR GLAUCOMA) Genitourinary Surgery: No Gynecologic Surgery: Yes (D&C) Hysterectomy: No Neurologic Surgery: No Oral Surgery: No Pacemaker: No Thoracic Surgery: Yes (right and middle lobectomy 1994) Other Surgery: Yes (3/4 OF RIGHT LUNG REMOVED DUE TO CA, saliva gland left jaw removed) Social History Alcohol Use: No Tobacco Use: Yes (1 CIGS A DAY) Substance Use: No Allergies-Medications (Allergen,Severity, Reaction): Coded Allergies: Penicillin (Verified Allergy, Severe, Hives, 01/14/17) Reported Meds & Prescriptions Reported Meds & Active Scripts Active Tylenol (Acetaminophen) 325 Mg Tab 325 Mg PO Q4H PRN Reported Aleve Arthritis (Naproxen Sodium) 220 Mg Tab 220 Mg PO BID Xalatan Opth Drops (Latanoprost) 0.005% Drops 1 Drop EACH EYE HS Vitamin H95-Suvld Acid (Cobalamine Combinations) 500-400 Mcg Tab 1 Tab PO DAILY Ipratropium Neb (Ipratropium [place]) 0.5 Mg/2.5 Ml Amp 0.5 Mg NEB Q4HR NEB PRN Vitamin D3 (Cholecalciferol) 1,000 Unit Tab 1,000 Units PO HS Aspirin 81 (Aspirin) 81 Mg Tabdr 81 Mg PO HS Ventolin Hfa 18 GM Inh (Albuterol Sulfate) 90 Mcg/Act Aer 2 Puff INH Q4H PRN Buspirone (Buspirone HCl) 5 Mg Tab 5 Mg PO TID Furosemide 20 Mg Tab 20 Mg PO DAILY PRN Klor-Con 8 (Potassium Chloride) 8 Meq Tab 8 Meq PO DAILY PRN Advair Diskus Inh (Fluticasone-Salmeterol Inh) 250-50 Mcg/Blist Aer 1 Puff INH BID Rinse mouth after use. Review of Systems General / Constitutional: No: Fever Eyes: No: Visual changes HENT: No: Headaches Cardiovascular: No: Chest Pain or Discomfort Respiratory: Positive: Cough, Shortness of Breath Gastrointestinal: No: Abdominal Pain Genitourinary: No: Dysuria Musculoskeletal: No: Pain Skin: No Rash Neurologic: No: Weakness Psychiatric: No: Depression Endocrine: No: Polydipsia Hematologic/Lymphatic: No: Easy Bruising Physical Exam Narrative GENERAL: Well-nourished, well-developed patient. SKIN: Focused skin assessment warm/dry. HEAD: Normocephalic. EYES: No scleral icterus. No injection or drainage. NECK: Supple, trachea midline. No JVD or lymphadenopathy. CARDIOVASCULAR: Regular rate and rhythm without murmurs, gallops, or rubs. RESPIRATORY: Breath sounds equal bilaterally. No accessory muscle use. GASTROINTESTINAL: Abdomen soft, non-tender, nondistended. MUSCULOSKELETAL: No cyanosis, or edema. BACK: Nontender without obvious deformity. No CVA tenderness. Neurologic exam normal. Data Data Last Documented VS Vital Signs Date Time Temp Pulse Resp B/P Pulse Ox O2 Delivery O2 Flow Rate FiO2 01/14/17 11:03 99 Nasal Cannula 2.00 01/14/17 11:01 104 20 141/59 01/14/17 10:39 98.4 Orders Complete Blood Count With Diff (01/14/17 10:54) Comprehensive Metabolic Panel (01/14/17 10:54) B-Type Natriuretic Peptide (01/14/17 10:54) Prothrombin Time / Inr (Pt) (01/14/17 10:54) Act Partial Throm Time (Ptt) (01/14/17 10:54) Urinalysis - C+S If Indicated (01/14/17 10:54) Chest, Single Ap (01/14/17 10:54) Iv Access Insert/Monitor (01/14/17 10:54) Ecg Monitoring (01/14/17 10:54) Oxygen Administration (01/14/17 10:54) Oximetry (01/14/17 10:54) Albuterol-Ipratropium Neb (Duoneb Neb) (01/14/17 11:00) Labs Laboratory Tests Test 01/14/17 01/14/17 11:17 11:25 White Blood Count 7.7 TH/MM3 Red Blood Count 3.68 MIL/MM3 Hemoglobin 11.2 GM/DL Hematocrit 34.1 % Mean Corpuscular Volume 92.9 FL Mean Corpuscular Hemoglobin 30.5 PG Mean Corpuscular Hemoglobin 32.8 % Concent Red Cell Distribution Width 13.6 % Platelet Count 294 TH/MM3 Mean Platelet Volume 7.5 FL Neutrophils (%) (Auto) 75.4 % Lymphocytes (%) (Auto) 15.0 % Monocytes (%) (Auto) 8.5 % Eosinophils (%) (Auto) 0.2 % Basophils (%) (Auto) 0.9 % Neutrophils # (Auto) 5.7 TH/MM3 Lymphocytes # (Auto) 1.2 TH/MM3 Monocytes # (Auto) 0.7 TH/MM3 Eosinophils # (Auto) 0.0 TH/MM3 Basophils # (Auto) 0.1 TH/MM3 CBC Comment DIFF FINAL Differential Comment Prothrombin Time 10.6 SEC Prothromb Time International 1.0 RATIO Ratio Activated Partial 27.1 SEC Thromboplast Time Sodium Level 136 MEQ/L Potassium Level 4.7 MEQ/L Chloride Level 93 MEQ/L Carbon Dioxide Level 35.9 MEQ/L Anion Gap 7 MEQ/L Blood Urea Nitrogen 12 MG/DL Creatinine 0.89 MG/DL Estimat Glomerular Filtration 61 ML/MIN Rate Random Glucose 272 MG/DL Calcium Level 9.5 MG/DL Total Bilirubin 0.3 MG/DL Aspartate Amino Transf 14 U/L (AST/SGOT) Alanine Aminotransferase 16 U/L (ALT/SGPT) Alkaline Phosphatase 98 U/L B-Type Natriuretic Peptide 142 PG/ML Total Protein 7.5 GM/DL Albumin 2.6 GM/DL Urine Collection Type CLEAN CATCH Urine Color YELLOW Urine Turbidity CLEAR Urine pH 7.0 Urine Specific [place] 1.006 Urine Protein NEG mg/dL Urine Glucose (UA) NEG mg/dL Urine Ketones NEG mg/dL Urine Occult Blood NEG Urine Nitrite NEG Urine Bilirubin NEG Urine Leukocyte Esterase NEG Urine Squamous Epithelial 0-5 /hpf Cells Urine Amorphous Sediment FEW Microscopic Urinalysis Comment CULT NOT INDICATED Urine Collection Time 1125 MDM Medical Decision Making Medical Screen Exam Complete: Yes Emergency Medical Condition: Yes Medical Record Reviewed: Yes Interpretation(s) Last Impressions Chest X-Ray 01/14/17 1054 Signed Impressions: Service Date/Time: Monday, January 14, 2017 11:08 - CONCLUSION: No significant change has occurred. Holden Rizvi MD 11:54 AM. CBC within normal limit. Chloride 93. Bicarbonate 35.9. Glucose 272. BNP 142. UA is negative. Differential Diagnosis Differential diagnosis including acute exacerbation COPD, bronchitis, pneumonia , PE, pneumothorax, pleural effusion, CHF. Narrative Course 81-year-old female with shortness of breath. History of COPD and lung cancer. Diagnosis Primary Impression: Bronchitis Additional Impression: COPD with acute exacerbation Patient Instructions: General Instructions Additional Instructions: Continue with albuterol nebulizer as needed for shortness of breath. Z-José Miguel and prednisone as directed. Follow-up with personal physician. Return if persistent problem or worse. Med/Other Pt SpecificInfo: Prescription(s) given Scripts Azithromycin (Zithromax Z-José Miguel)250 Mg [id number] Mg PO DIRECTED #1 DSPK 500 MG (2 tabs) day 1, then 1 tab days 2-5. Prov:Matti Newsome MD 01/14/17 Prednisone 20 Mg Tab20 Mg PO BID #10 TAB Prov:Matti Newsome MD 01/14/17 Disposition: 01 DISCHARGE HOME Condition: Stable Matti Newsome MD Jan 14, 2017 11:00
[2017-01-14 11:01] VITALS: BP 141/59; PULSE 104; RESP 20; O2SAT 94
[2017-01-14] MEDS ORDERED: ALEV220T14 PO (11:01)
[2017-01-14 11:03] VITALS: O2SAT 99
[2017-01-14 11:15] VITALS: O2SAT 95
--- NOTE | 2017-01-14 11:23 | RADRPT ---
EXAM DATE/TIME: 01/14/2017 11:08 [facility] COMPARISON: CHEST PA & LAT, September 25, 2015, 12:40. CHEST SINGLE AP, December 13, 2016, 9:03. INDICATIONS : Short of breath MEDICAL HISTORY : Carcinoma, lung. Chronic obstructive pulmonary disease. SURGICAL HISTORY : Right and left lung surgery for cancer ENCOUNTER: Initial ACUITY: 1 week PAIN SCORE: 0/10 LOCATION: Bilateral chest FINDINGS: There is hyperinflation and persistent abnormal opacity in the left superhilar region and left lung a pex. This is unchanged compared to previous examination from 2016. Aortic calcification. Borderline c ardiomegaly. Lungs are otherwise clear. CONCLUSION: No significant change has occurred. Holden Rizvi MD on January 14, 2017 at 11:20 Board Certified Radiologist. This report was verified electronically.
[2017-01-14 11:24] LABS: AUTOMATED NEUTROPHIL # 5.7 TH/MM3 (1.8-7.7); BASOPHIL # 0.1 TH/MM3 (0-0.2); BASOPHIL % 0.9 % (0.0-2.0); EOSINOPHIL % 0.2 % (0.0-4.0); HEMATOCRIT 34.1 % (35.0-46.0); LYMPHOCYTE # 1.2 TH/MM3 (1.0-4.8); MEAN CELL VOLUME 92.9 FL (80.0-100.0); MEAN CORPUSCULAR HEMOGLOBIN 30.5 PG (27.0-34.0); MEAN CORPUSCULAR HGB CONC 32.8 % (32.0-36.0); MONO % 8.5 % (0.0-8.0); NEUT % 75.4 % (16.0-70.0); PLATELET COUNT 294 TH/MM3 (150-450); RED BLOOD COUNT 3.68 MIL/MM3 (4.00-5.30); RED CELL DISTRIBUTION WIDTH 13.6 % (11.6-17.2); WHITE BLOOD COUNT 7.7 TH/MM3 (4.0-11.0)
[2017-01-14 11:30] LABS: HEMO FLAGS DIFF FINAL
[2017-01-14 11:33] LABS: CHLORIDE 93 MEQ/L (98-107); POTASSIUM 4.7 MEQ/L (3.5-5.1); SODIUM (NA) 136 MEQ/L (136-145)
[2017-01-14 11:35] LABS: BLOOD, URINE NEG (NEG); GLUCOSE,URINE NEG (NEG); KETONE, URINE NEG (NEG); NITRITE,URINE NEG (NEG)
[2017-01-14 11:37] LABS: METHOD OF COLLECTION CLEAN CATCH; URINE COLOR YELLOW (YELLW/STRAW)
[2017-01-14 11:37] LABS: ANION GAP 7 MEQ/L (5-15); BICARBONATE 35.9 MEQ/L (21.0-32.0); BLOOD UREA NITROGEN 12 MG/DL (7-18)
[2017-01-14 11:39] LABS: COMMENT (UR) CULT NOT INDICATED; CULTURE IF INDICATED CULT NOT INDICATED; SQUAMOUS EPITHELIAL CELL URINE 0-5 /hpf (0-5)
[2017-01-14 11:39] LABS: APTT (PATIENT) 27.1 SEC (24.3-30.1); PROTHROMBIN TIME - PATIENT 10.6 SEC (9.8-11.6)
[2017-01-14 11:40] LABS: ALT (GPT) 16 U/L (10-53); AST (GOT) 14 U/L (15-37); GLOMERULAR FILTRATION RATE 61 ML/MIN (>89)
[2017-01-14 11:41] LABS: TOTAL BILIRUBIN ADULT 0.3 MG/DL (0.2-1.0)
[2017-01-14 11:43] LABS: ALKALINE PHOSPHATASE 98 U/L (45-117)
[2017-01-14] MEDS ORDERED: PRED20 PO (12:02)
[2017-01-14] MEDS ORDERED: ZITHTAB PO (12:03)
[2017-01-14 12:17] VITALS: BP 116/59
== END 2017-01-14 12:42 | disposition home or self-care (01) ==
LOC: PHED 10:36
DX: J44.1 Chronic obstructive pulmonary disease with (acute) exacerbation (principal); Z72.0 Tobacco use; J20.9 Acute bronchitis, unspecified; I10 Essential (primary) hypertension; Z99.81 Dependence on supplemental oxygen; Z85.118 Personal history of other malignant neoplasm of bronchus and lung
CPT/HCPCS: 71010; 80053; 81001; 83880; 85025; 85610; 85730; 94664; 99284

== ENCOUNTER 2017-08-05 09:45 | Inpatient (IN) | payer MEDICARE ==
[~2017-08-05] VITALS: Ht 162.6 cm; Wt 59.0 kg
[2017-08-05] VITALS (30 sets, daily range): BP systolic 78–158; BP diastolic 48–98; PULSE 100–138; RESP 0–28; TEMP 93.2–95.8; O2SAT 0–100
[~2017-08-05 09:45] MED LIST changes: +ALEV220T14 PO; -ASPI-110 PO; +ASPI1TAB57 PO; -AZIT250T3 PO; +EPINEPHrine HCL (1:10,000) 1 MG/10 ML SYRINGE IV ONE; -FERR65TA PO; -PRED10PA2 PO; +PRED20 PO; +SODIUM BICARBONATE 8.4% INJ 50 MEQ/50 ML SYR IV ONE; -TRAM50TA PO; +ZITHTAB PO
[2017-08-05] MEDS ORDERED: SUCCINYLCHOLINE CHLORIDE 200 MG/10 ML VIAL ONE (09:49)
[2017-08-05] MEDS ORDERED: EPINEPHrine HCL (1:1000) 1 MG/ML VIAL ONE (10:14)
--- NOTE | 2017-08-05 10:33 | RADRPT ---
EXAM DATE/TIME: 08/05/2017 10:16 [facility] COMPARISON: CHEST SINGLE AP, January 14, 2017, 11:08. INDICATIONS : Post intubation. MEDICAL HISTORY : Carcinoma, lung. Chronic obstructive pulmonary disease. SURGICAL HISTORY : right lobectomy. ENCOUNTER: Initial ACUITY: 1 day PAIN SCORE: Non-responsive. LOCATION: Bilateral chest FINDINGS: NG tube is present with tip in the stomach. ET tube is present with tip overlapping approximately 2 t o left apical opacity is present not present previously measuring almost 7.3 cm in size probably cons olidated lung or could potentially be a cavitary lesion. There is slight infiltrate in the right midl ollie laterally and right lower lobe above the costophrenic angle. cm above the ludwin. There are ather osclerotic calcifications of the aorta due to chronic atherosclerotic disease. CONCLUSION: Interval development of left upper lung consolidation and or possibly cavitary lesion. Underlying mas s is not excluded. Rigo Cantrell MD on August 05, 2017 at 10:30 Board Certified Radiologist. This report was verified electronically.
[2017-08-05 10:54] LABS: AUTOMATED NEUTROPHIL # 2.9 TH/MM3 (1.8-7.7); BASOPHIL % 0.4 % (0.0-2.0); EOSINOPHIL % 0.2 % (0.0-4.0); HEMATOCRIT 32.4 % (35.0-46.0); LYMPH % 64.7 % (9.0-44.0); LYMPHOCYTE # 6.2 TH/MM3 (1.0-4.8); MEAN CELL VOLUME 102.9 FL (80.0-100.0); MEAN CORPUSCULAR HEMOGLOBIN 31.7 PG (27.0-34.0); MEAN CORPUSCULAR HGB CONC 30.8 % (32.0-36.0); MONO % 4.7 % (0.0-8.0); MONOCYTE # 0.5 TH/MM3 (0-0.9); PLATELET COUNT 240 TH/MM3 (150-450); RED BLOOD COUNT 3.14 MIL/MM3 (4.00-5.30); RED CELL DISTRIBUTION WIDTH 16.5 % (11.6-17.2); WHITE BLOOD COUNT 9.6 TH/MM3 (4.0-11.0)
[2017-08-05] MEDS ORDERED: PANTOPRAZOLE INJ 80 MG in SODIUM CHLORIDE 0.9% INJ 35 ML IV ONE ×2 (11:00→13:42)
[2017-08-05] MEDS ORDERED: OCTREOTIDE INJ 100 MCG/ML VIAL IV PUSH ONE (11:00)
[2017-08-05] MEDS ORDERED: SODIUM CHLOR 0.9% 250 ML INJ 250 ML IV ONE ×2 (11:00)
[2017-08-05] MEDS ORDERED: PANTOPRAZOLE INJ 80 MG in SODIUM CHLORIDE 0.9% INJ 100 ML IV SCH ×6 (11:00→21:00)
[2017-08-05 11:01] LABS: INTERNATIONAL NORMALIZED RATIO 1.1 RATIO; PROTHROMBIN TIME - PATIENT 11.6 SEC (9.8-11.6)
[2017-08-05 11:09] LABS: LACTIC ACID SEPSIS PROTOCOL 13.1 mmol/L (0.4-2.0)
[2017-08-05 11:14] LABS: ALBUMIN 2.5 GM/DL (3.4-5.0); ALT (GPT) 23 U/L (10-53); AST (GOT) 26 U/L (15-37); BICARBONATE 22.9 MEQ/L (21.0-32.0); BLOOD UREA NITROGEN 14 MG/DL (7-18); CALCIUM 8.8 MG/DL (8.5-10.1); CHLORIDE 105 MEQ/L (98-107); CREATININE 1.08 MG/DL (0.50-1.00); GLOMERULAR FILTRATION RATE 49 ML/MIN (>89); GLUCOSE,RANDOM 302 MG/DL (74-106); LIPASE 184 U/L (73-393); SODIUM (NA) 143 MEQ/L (136-145)
[2017-08-05] MEDS ORDERED: VANCOMYCIN INJ 1,200 MG in SODIUM CHLOR 0.9% 250 ML INJ 250 ML IV ONE (11:15)
[2017-08-05] MEDS ORDERED: SODIUM CHLOR 0.9% 1000 ML INJ 1,000 ML IV ONE ×4 (11:15→16:15)
[2017-08-05] MEDS ORDERED: CEFEPIME INJ 2,000 MG in SODIUM CHLORIDE 0.9% INJ 100 ML IV ONE (11:15)
[2017-08-05 11:18] LABS: ALKALINE PHOSPHATASE 68 U/L (45-117); TOTAL BILIRUBIN ADULT 0.2 MG/DL (0.2-1.0); TOTAL PROTEIN 5.8 GM/DL (6.4-8.2); TROPONIN I 0.02 NG/ML (0.02-0.05)
[2017-08-05 11:19] LABS: BANDS 1 % (0-6); LYMPHOCYTES 56 % (9-44); MONOCYTES 6 % (0-8); NEUTROPHIL # MANUAL DIFF 3.6 TH/MM3 (1.8-7.7); POLYS (SEG NEUTROPHILS) 36 % (16-70)
[2017-08-05] MEDS ORDERED: SUCCINYLCHOLINE CHLORIDE 100 MG/5 ML SYRINGE IV PUSH ONE (11:45)
[2017-08-05] MEDS ORDERED: TERBUTALINE INJ 1 MG/ML AMP SQ PRN (11:45)
--- NOTE | 2017-08-05 12:08 | PD ---
HPI Chief Complaint: Code Blue Time Seen by Provider: 10:00 Travel History International Travel<30 days: No Contact w/Intl Traveler<30days: No Traveled to known affect area: No History of Present Illness HPI Patient is an 81-year-old female brought in by EMS status post cardiac arrest. EMS, patient was drinking coffee when she vomited blood and then went into cardiac arrest. On arrival, there was no pulse. Per , she had not complained of anything prior to the event today. He says there was "a lot" of blood in the kitchen. She has history of lung cancer and "an enlarged blood vessel in her abdomen." Per , this was checked last month and they were told there were no issues. Patient is unresponsive, and unable to provide any history. PFSH Past Medical History Anemia: Yes Arthritis: Yes Asthma: No Autoimmune Disease: No Heart Rhythm Problems: No Cancer: Yes (LUNG; RECTAL) Cardiovascular Problems: No High Cholesterol: No Chemotherapy: Yes (8 years ago) Chest Pain: No Congestive Heart Failure: No COPD: Yes (2L NC AT NIGHT) Diabetes: No Diminished Hearing: No Gastrointestinal Disorders: No Glaucoma: Yes Genitourinary: No Hepatitis: No Hiatal Hernia: No Hypertension: Yes Immune Disorder: No Implanted Vascular Access Dvce: No Musculoskeletal: Yes Neurologic: No Psychiatric: No Reproductive: No Respiratory: Yes (copd) Immunizations Current: Yes (shingles 2015) Radiation Therapy: Yes (LAST TREATMENT 2008) Sleep Apnea: No Thyroid Disease: Yes (PARATHYROID SURGERY) Tetanus Vaccination: < 5 Years Influenza Vaccination: Yes ?: Not Menopausal: Yes : 2 Para: 2 Past Surgical History Abdominal Surgery: No Cardiac Surgery: No Ear Surgery: No Endocrine Surgery: Yes (PARATHYROID) Eye Surgery: Yes (BILATERAL CATARACT SX; LASER SX FOR GLAUCOMA) Genitourinary Surgery: No Gynecologic Surgery: Yes (D&C) Hysterectomy: No Neurologic Surgery: No Oral Surgery: No Pacemaker: No Thoracic Surgery: Yes (right and middle lobectomy 1994) Other Surgery: Yes (3/4 OF RIGHT LUNG REMOVED DUE TO CA, saliva gland left jaw removed) Social History Alcohol Use: No Tobacco Use: Yes (1 CIGS A DAY) Substance Use: No Allergies-Medications (Allergen,Severity, Reaction): Coded Allergies: penicillin G (Verified Allergy, Severe, Hives, 08/05/17) Reported Meds & Prescriptions Reported Meds & Active Scripts Active Reported Xalatan Opth Drops (Latanoprost) 0.005% Drops 1 Drop EACH EYE HS Ventolin Hfa 18 GM Inh (Albuterol Sulfate) 90 Mcg/Act Aer 2 Puff INH Q4H PRN Advair Diskus Inh (Fluticasone-Salmeterol Inh) 250-50 Mcg/Blist Aer 1 Puff INH BID Rinse mouth after use. Review of Systems ROS Limitations: Clinical Condition, Unresponsive Physical Exam Exam Limitations: Clinical Condition Narrative GENERAL: Unresponsive SKIN: Focused skin assessment warm/dry. No wounds or signs of infection. HEAD: Atraumatic. Normocephalic. EYES: Pupils fixed. ENT: Mucous membranes pink and moist. NECK: Trachea midline. No JVD. CARDIOVASCULAR: Tachycardia. No murmur appreciated. RESPIRATORY: Clear to auscultation. Breath sounds equal bilaterally. GASTROINTESTINAL: Abdomen distended. MUSCULOSKELETAL: No obvious deformities. No clubbing. No cyanosis. No edema. Data Data Last Documented VS Vital Signs Date Time Temp Pulse Resp B/P (MAP) Pulse Ox O2 Delivery O2 Flow Rate FiO2 08/05/17 12:14 93.4 103 28 149/75 100 08/05/17 11:59 100 08/05/17 11:37 Ventilator Orders Orders Succinylcholine Inj (Quelicin Inj) (08/05/17 09:49) Type And Screen (08/05/17 10:07) Epinephrine (1:1000) Inj (Adrenalin (1:1 (08/05/17 10:14) Chest, Single Ap (08/05/17 ) Arterial Blood Gas (Abg) (08/05/17 10:24) Complete Blood Count With Diff (08/05/17 10:44) Comprehensive Metabolic Panel (08/05/17 10:44) Prothrombin Time / Inr (Pt) (08/05/17 10:44) Act Partial Throm Time (Ptt) (08/05/17 10:44) Lactic Acid Sepsis Protocol (08/05/17 10:44) Lipase (08/05/17 10:44) Ckmb (Isoenzyme) Profile (08/05/17 10:44) Troponin I (08/05/17 10:44) Urinalysis - C+S If Indicated (08/05/17 10:44) Blood Culture (08/05/17 10:44) Blood Glucose (08/05/17 10:44) Ecg Monitoring (08/05/17 10:44) Iv Access Insert/Monitor (08/05/17 10:44) Oximetry (08/05/17 10:44) Oxygen Administration (08/05/17 10:44) Cta Thor Abd Aorta W Iv C W3d (08/05/17 10:46) Pantoprazole Inj (Protonix Inj) (08/05/17 11:00) Pantoprazole Inj (Protonix Inj) (08/05/17 11:00) Octreotide Inj (Sandostatin Inj) (08/05/17 11:00) Red Blood Cells (Rbc) (08/05/17 10:46) Blood Product Administration (08/05/17 10:46) Sodium Chlor 0.9% 250 Ml Inj (Ns 250 Ml (08/05/17 11:00) I-Stat Profile (08/05/17 09:55) Fresh Frozen Plasma (Ffp) (08/05/17 10:59) Blood Product Administration (08/05/17 10:59) Sodium Chlor 0.9% 250 Ml Inj (Ns 250 Ml (08/05/17 11:00) Sodium Chlor 0.9% 1000 Ml Inj (Ns 1000 M (08/05/17 11:15) Sodium Chlor 0.9% 1000 Ml Inj (Ns 1000 M (08/05/17 11:15) Vancomycin Inj (Vancomycin Inj) (08/05/17 11:15) Cefepime Inj (Maxipime Inj) (08/05/17 11:15) Pantoprazole Inj (Protonix Inj) (08/05/17 21:00) Electrocardiogram (08/05/17 10:02) Succinylcholine Inj (Quelicin Inj) (08/05/17 11:45) Norepinephrine-Dextrose Drip (Levophed-D (08/05/17 14:00) Terbutaline Inj (Brethine Inj) (08/05/17 11:45) Epinephrine (1:1000) Inj (Adrenalin (1:1 (08/05/17 11:45) Urinary Catheter Insert/Apply (08/05/17 12:18) Labs Laboratory Tests Test 08/05/17 09:55 08/05/17 10:24 White Blood Count 9.6 TH/MM3 Red Blood Count 3.14 MIL/MM3 Hemoglobin 10.0 GM/DL Bedside Hemoglobin 10.2 G/DL Hematocrit 32.4 % Bedside Hematocrit 30.0 % Mean Corpuscular Volume 102.9 FL Mean Corpuscular Hemoglobin 31.7 PG Mean Corpuscular Hemoglobin Concent 30.8 % Red Cell Distribution Width 16.5 % Platelet Count 240 TH/MM3 Mean Platelet Volume 8.0 FL Neutrophils (%) (Auto) 30.0 % Lymphocytes (%) (Auto) 64.7 % Monocytes (%) (Auto) 4.7 % Eosinophils (%) (Auto) 0.2 % Basophils (%) (Auto) 0.4 % Neutrophils # (Auto) 2.9 TH/MM3 Lymphocytes # (Auto) 6.2 TH/MM3 Monocytes # (Auto) 0.5 TH/MM3 Eosinophils # (Auto) 0.0 TH/MM3 Basophils # (Auto) 0.0 TH/MM3 CBC Comment AUTO DIFF Differential Total Cells Counted 100 Neutrophils % (Manual) 36 % Band Neutrophils % 1 % Lymphocytes % 56 % Monocytes % 6 % Eosinophils % 1 % Neutrophils # (Manual) 3.6 TH/MM3 Differential Comment FINAL DIFF MANUAL Platelet Estimate NORMAL Platelet Morphology Comment NORMAL Prothrombin Time 11.6 SEC Prothromb Time International Ratio 1.1 RATIO Activated Partial Thromboplast Time 49.1 SEC Bedside Sodium 141 MMOL/L Blood Urea Nitrogen 14 MG/DL Creatinine 1.08 MG/DL Random Glucose 302 MG/DL Total Protein 5.8 GM/DL Albumin 2.5 GM/DL Calcium Level 8.8 MG/DL Alkaline Phosphatase 68 U/L Aspartate Amino Transf (AST/SGOT) 26 U/L Alanine Aminotransferase (ALT/SGPT) 23 U/L Total Bilirubin 0.2 MG/DL Sodium Level 143 MEQ/L Potassium Level 4.9 MEQ/L Chloride Level 105 MEQ/L Carbon Dioxide Level 22.9 MEQ/L Bedside Potassium 4.9 MMOL/L Bedside Chloride 103 MMOL/L Anion Gap 15 MEQ/L Bedside Blood Urea Nitrogen 14 MG/DL Bedside Creatinine 0.9 MG/DL Estimat Glomerular Filtration Rate 49 ML/MIN Bedside Glucose 281 MG/DL Lactic Acid Level 13.1 mmol/L Total Creatine Kinase 82 U/L Troponin I 0.02 NG/ML Lipase 184 U/L Blood Gas Puncture Site LT RADIAL Blood Gas Patient Temperature 98.6 Blood Gas HCO3 20 mmol/L Blood Gas Base Excess -12.9 mmol/L Blood Gas Oxygen Saturation 98 % Arterial Blood pH 6.83 Arterial Blood Partial Pressure CO2 125 mmHg Arterial Blood Partial Pressure O2 418 mmHG Arterial Blood Oxygen Content 12.0 Vol % Arterial Blood Carboxyhemoglobin 0.0 % Arterial Blood Methemoglobin 1.1 % Blood Gas Hemoglobin 7.9 G/DL Oxygen Delivery Device VENTILATOR Blood Gas Ventilator Setting PCAC 16/32IP/5+/0.8I Blood Gas Inspired Oxygen 100 % MDM Medical Decision Making Medical Screen Exam Complete: Yes Emergency Medical Condition: Yes Medical Record Reviewed: Yes Interpretation(s) ECG shows sinus tachycardia Differential Diagnosis GI bleed versus sepsis versus NH versus AAA versus PE Narrative Course Patient is an 81-year-old female brought in by EMS status post cardiac arrest. She received 4 rounds of epi as well as CPR by EMS, ROSC was obtained just prior to arrival. On arrival, the tube was changed out for an ET tube. Tube was placed, patient had large amount of blood coming out of her stomach. She is given 1 unit of emergency release blood. Started on Levophed. Given IV fluids. She did lose her pulse again, after one dose of epinephrine and one round of CPR , pulses were regained. Chest x-ray confirms tube placement. There is a large mass in the left upper lobe. Patient continued to drop her blood pressure, started on epinephrine drip. 2 more units of blood ordered. GI consulted. Dr. Flores came to see the patient, says the does not want to pursue any procedures. He will come back if he changes his mind. Given Protonix and Octreotide. Given antibiotics. CTA of the aorta ordered. Patient to be admitted to the ICU. Critical Care Narrative Aggregate critical care time was 60 minutes. Time to perform other separately billable procedures was not included in the critical care time. My time did not include minutes spent treating any other patients simultaneously or on activities that did not directly contribute to the patient's treatment. The services I provided to this patient were to treat and/or prevent clinically significant deterioration that could result in: Serious illness or I provided critical care services requiring my management, as noted below: Chart data review, documentation time, medication orders and management, vital sign assessments/reviewing monitor data, ordering and reviewing lab tests, ordering and interpreting/reviewing x-rays and diagnostic studies, care of the patient and discussion of the patient with the admitting physicians. Procedures Procedure Narrative After the risks and benefits were discussed the following procedure was performed: INTUBATION: The patient was put in optimal position for the procedure. Rapid sequence intubation was initiated by me using 100 milligrams of succinyl choline IV. The patient was intubated with a 7.5 cuffed endotracheal tube. Tube placement was confirmed by visualization of the tube and balloon passing through the cords, capnometry and subsequent chest x-ray. Breath sounds were equal and well aerated bilaterally postintubation. No breath sounds over stomach. Patient tolerated procedure well. CENTRAL VENOUS LINE: The site was prepped with Betadine and sterilely draped. It was infiltrated with 1% lidocaine plain. The deep vein was cannulated using normal Seldinger technique. A triple lumen central line was placed in the right femoral site and secured with simple interrupted suture. The site was sterilely dressed. The patient tolerated the procedure well. Diagnosis Primary Impression: GI bleed Qualified Codes: K92.2 - Gastrointestinal hemorrhage, unspecified Additional Impressions: Cardiac arrest Respiratory failure Qualified Codes: J96.01 - Acute respiratory failure with hypoxia; J96.02 - Acute respiratory failure with hypercapnia Acidosis Admitting Information Admitting Physician Requests: Admit Jenniffer Zhang MD Aug 05, 2017 12:08
[2017-08-05] MEDS ORDERED: SODIUM CHLOR 0.9% 1000 ML INJ 1,000 ML IV SCH (12:43)
[2017-08-05] MEDS ORDERED: CHLORHEXIDINE GLUCONATE 2 % 1 PACK (2 CLOTHS) TOP PRN (12:45)
[2017-08-05] MEDS ORDERED: MISCELLANEOUS NURSING INFORMATION XX SCH (12:45)
[2017-08-05] MEDS ORDERED: SODIUM CHLORIDE 0.9% FLUSH 10 ML FLUSH IV FLUSH PRN (12:45)
[2017-08-05] MEDS ORDERED: RESP: ALBUTEROL 2.5 MG/3 ML NEB (PRN) INH (12:45)
[2017-08-05] MEDS ORDERED: IOHEXOL 350 MG/ML 10 ML VIAL (for RAD DIAG) IVCONTRAST ONE (13:01)
[2017-08-05] MEDS ORDERED: EPINEPHrine HCL (1:10,000) 1 MG/10 ML SYRINGE ONE (13:17)
[2017-08-05] MEDS ORDERED: SODIUM BICARBONATE 8.4% INJ 50 ML ONE (13:29)
--- NOTE | 2017-08-05 13:45 | RADRPT ---
EXAM DATE/TIME: 08/05/2017 12:57 [facility] COMPARISON: CT PULMONARY ANGIOGRAM, May 10, 2016, 15:30. CHEST SINGLE AP, July, 10:16. INDICATIONS : Abdominal distention. IV CONTRAST: 99 cc Omnipaque 350 (iohexol) IV RADIATION DOSE: 15.58 CTDIvol (mGy) MEDICAL HISTORY : Hypertension. Carcinoma, colon. Carcinoma, lung. SURGICAL HISTORY : None. ENCOUNTER: Initial ACUITY: 1 day PAIN SCALE: Non-responsive LOCATION: Bilateral abdomen TECHNIQUE: Volumetric scanning was performed using a multi-row detector CT scanner. The data was post processed with a variety of visualization algorithms including full volume maximum intensity pr ojection, multi-planar sliding thin slab reformation, curved planar reformation, and surface renderin g techniques. Using automated exposure control and adjustment of the mA and/or kV according to patie nt size, radiation dose was kept as low as reasonably achievable to obtain optimal diagnostic quality images. DICOM format image data is available electronically for review and comparison. FINDINGS: There is no evidence of aortic dissection. Ascending aorta measures 2.9 cm in transverse diamete r and 2.9 cm in AP diameter. There is a large left pneumothorax extending into the subdiaphragmatic l ocation and there is extensive subcutaneous emphysema on the left which dissects into the abdominal r egion and the air visualized in the upper abdomen appears to be extraperitoneal as well with slight i ntraperitoneal air as well. There is an approximate 7.7 cm consolidation in left upper lobe partially cavitary suspicious for pneumonia, however underlying malignancy is difficult to exclude not present on the prior study from 2016 and at that time there was a large cavitary lesion at this site and the refore the above-mentioned process is most likely an intracavitary process within a large bladder. Th ere are other areas of parenchymal infiltrates in the left lower lobe not present previously with par enchymal changes in the right lung towards the periphery and lateral portion of the lung and approxim ate 1.4 cm nodule in the right lower lung anteromedially all of which were not present previously mos t likely inflammatory changes and pneumonia. The gallbladder demonstrates multiple stones without gal lbladder wall thickening, or pericholecystic fluid. The descending aorta measures 3.7 x 3.8 cm in siz e aneurysmal below the renal arteries and extends down to the iliac bifurcation. There is no evidence of extravasation of contrast or any retroperitoneal hematoma. There is extensive atherosclerotic dis ease at the origin of the SMA, celiac artery bilateral renal arteries mild to moderate stenosis at th e origin of the left renal artery SMA. The common iliac arteries also demonstrate extensive atheroscl erotic plaquing which extends all the way down to the femoral arteries and there is high-grade stenos is of right common iliac artery. CONCLUSION: 1. Large left pneumothorax with extensive subcutaneous emphysema and most of the pneumothorax is subd iaphragmatic with extensive gas in the upper abdomen which appears to be mainly extraperitoneal, zuniga edinson it does have some degree of intraperitoneal component as well. 2. 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 3. The previously seen left upper lung bleb is not filled with soft tissue density most likely an inf ected bleb with multiple other areas of parenchymal process in both lungs most likely inflammatory an d due to pneumonia. 4. Gallstones. Findings were discussed with Dr. Watters on 13:40 hours at the time of this dictation. Rigo Cantrell MD on August 05, 2017 at 13:29 Board Certified Radiologist. This report was verified electronically.
[2017-08-05] MEDS: metroNIDAZOLE 500 MG INJ 100 ML IV SCH ×2 (14:00→20:50)
--- NOTE | 2017-08-05 14:10 | PD.PROCEDR ---
Procedure Note Procedure Procedure Procedure: Left pigtail chest tube placement Indication: Large left pneumothorax, with tension features Informed consent was obtained from the patient's . The patient was positioned appropriately for chest tube placement. US sound was used to martha the insertion site. The patients left chest was prepped and draped in sterile fashion. 1% Lidocaine was used to anesthetize the surrounding skin area. A small skin incision was made at the insertion site. 18 G access needle was introduced into the pleural space with rahman of air.. Syringe was removed and a guidewire was placed through the access needle. The access needle was removed, a dilator was used to dilate the track. Using Seldinger technique 10 [place] pigtail catheter was inserted into the pleural space. 1-2 + air leak after intial escape of large aount of air and after connection to the PleuroVac and - 40 wall suction. A chest x-ray is pending at this time. Estimated Blood Loss: <1 ml The patient tolerated the procedure well and there were no complications. Raf Watters MD Aug 05, 2017 14:10
--- NOTE | 2017-08-05 14:25 | HHI.CCPN ---
Subjective Remarks/Hospital Course Procedure Procedure: Left pigtail chest tube placement Indication: Large left pneumothorax, with tension features Informed consent was obtained from the patient's . The patient was positioned appropriately for chest tube placement. US sound was used to martha the insertion site. The patients left chest was prepped and draped in sterile fashion. 1% Lidocaine was used to anesthetize the surrounding skin area. A small skin incision was made at the insertion site. 18 G access needle was introduced into the pleural space with rahman of air.. Syringe was removed and a guidewire was placed through the access needle. The access needle was removed, a dilator was used to dilate the track. Using Seldinger technique 10 Irish pigtail catheter was inserted into the pleural space. 1-2 + air leak after intial escape of large aount of air and after connection to the PleuroVac and - 40 wall suction. A chest x-ray is pending at this time. Estimated Blood Loss: <1 ml The patient tolerated the procedure well and there were no complications. Objective Vital Signs Date Time Temp Pulse Resp B/P (MAP) Pulse Ox O2 Delivery O2 Flow Rate FiO2 08/05/17 12:30 0 100 08/05/17 12:29 93.5 102 28 144/ 08/05/17 11:37 Ventilator Intake and Output 08/05/17 08/05/17 08/06/17 08:00 16:00 00:00 Intake Total 3953 ml Balance 3953 ml Result Diagram: 08/05/17 0955 08/05/17 0955 Other Results Laboratory Tests Test 08/05/17 10:24 Blood Gas Puncture Site LT RADIAL Blood Gas Patient Temperature 98.6 Blood Gas HCO3 20 mmol/L (22-26) Blood Gas Base Excess -12.9 mmol/L (-2-2) Blood Gas Oxygen Saturation 98 % (90-100) Arterial Blood pH 6.83 (7.380-7.420) Arterial Blood Partial Pressure CO2 125 mmHg (38-42) Arterial Blood Partial Pressure O2 418 mmHG (61-120) Arterial Blood Oxygen Content 12.0 Vol % (12.0-20.0) Arterial Blood Carboxyhemoglobin 0.0 % (0-4) Arterial Blood Methemoglobin 1.1 % (0-2) Blood Gas Hemoglobin 7.9 G/DL (12.0-16.0) Oxygen Delivery Device VENTILATOR Blood Gas Ventilator Setting PCAC 16/32IP/5+/0.8I Blood Gas Inspired Oxygen 100 % Raf Watters MD Aug 05, 2017 14:25
--- NOTE | 2017-08-05 14:30 | EKG ---
Date Performed: 08/05/2017 Time Performed: 10:02:22 PTAGE: 81 years EKG: ATRIAL FIBRILLATION WITH RAPID VENTRICULAR RESPONSE BORDERLINE RIGHT AXIS DEVIATION PATTERN CONSISTENT WITH PULMONARY DISEASE INCOMPLETE RIGHT BUNDLE BRANCH BLOCK ST DEPRESSION, CONSIDER SUBEN DOCARDIAL INJURY ABNORMAL ECG Compared to PREVIOUS TRACING , atrial fibrillation with rapid ventricular response has replaced Sinus rhythm . ST changes are more prominent, consider ischemia. PREVIOUS TRACIN12/13/2016 08.03 DOCTOR: Rick Patino Interpretating Date/Time 08/05/2017 14:30:10
--- NOTE | 2017-08-05 14:56 | RADRPT ---
EXAM DATE/TIME: 08/05/2017 14:15 [facility] COMPARISON: CHEST SINGLE AP, August 05, 2017, 10:16. INDICATIONS : Post left sided chest tube placement MEDICAL HISTORY : Hypertension. Carcinoma, colon. Carcinoma, lung SURGICAL HISTORY : None. ENCOUNTER: Initial ACUITY: 1 day PAIN SCORE: Non-responsive. LOCATION: Left chest FINDINGS: Chest tube is present on the left side. Left apical consolidation has not changed. Bilateral parenchy mal infiltrates have not changed. ET tube, and NG tube have not changed. No definite pneumothorax is seen for technique. Slight subcutaneous emphysema is seen on the left not present previously. CONCLUSION: No definite pneumothorax post chest tube insertion. Rigo Cantrell MD on August 05, 2017 at 14:53 Board Certified Radiologist. This report was verified electronically.
--- NOTE | 2017-08-05 14:57 | RADRPT ---
EXAM DATE/TIME: 08/05/2017 14:22 [facility] COMPARISON: CHEST SINGLE AP, August 05, 2017, 14:15. INDICATIONS : Evaluate for free air MEDICAL HISTORY : Hypertension. Carcinoma, colon. Carcinoma, lung. SURGICAL HISTORY : None. ENCOUNTER: Initial ACUITY: 1 day PAIN SCORE: Non-responsive. LOCATION: Bilateral abdomen FINDINGS: There is abnormal gas collection in the midline and left upper quadrant most of it has the appearance of subcutaneous air and extraperitoneal air, however slight degree of intraperitoneal air is also villatoro spected. Chest tube is present on the left side. CONCLUSION: Subcutaneous gas and extraperitoneal air and slight degree of intraperitoneal free air is also suspec loida. Rigo Cantrell MD on August 05, 2017 at 14:54 Board Certified Radiologist. This report was verified electronically.
[2017-08-05] MEDS ORDERED: LEVOFLOXACIN 750 MG PREMIX INJ 150 ML IV SCH (15:00)
[2017-08-05] MEDS: NOREPINEPHRINE-DEXTROSE DRIP 250 ML IV PRN ×2 (15:27→17:28)
[2017-08-05] MEDS: EPINEPHrine (1:1000) INJ 2 MG in DEXTROSE 5% IN WATER INJ 250 ML IV PRN ×4 (15:27→20:53)
[2017-08-05] MEDS ORDERED: AZTREONAM INJ 2,000 MG in SODIUM CHLORIDE 0.9% INJ 100 ML IV SCH (16:00)
[2017-08-05] MEDS ORDERED: RESP: ALBUTEROL 2.5 MG/IPRATROPIUM 0.5 MG NEB (SCH) NEB ×2 (16:00→20:00)
--- NOTE | 2017-08-05 16:06 | HHI.HP ---
[facility] Service Critical Care Medicine Primary Care Physician Ania Helm MD Admission Diagnosis s/p cardiac arrest, GI bleed Diagnosis: (1) Cardiac arrest Diagnosis: Principal (2) Anoxic brain damage Diagnosis: Principal (3) Acute respiratory failure with hypoxia Diagnosis: Principal (4) Free intraperitoneal air Diagnosis: Principal (5) UGIB (upper gastrointestinal bleed) Diagnosis: Principal (6) Probable ruptured viscus Diagnosis: Principal (7) Shock Diagnosis: Principal (8) Lactic acidemia Diagnosis: Principal (9) COPD with acute exacerbation Diagnosis: Principal (10) Septic shock Diagnosis: Principal (11) Pneumothorax, left Diagnosis: Principal (12) multilobar pneumonia Diagnosis: Principal (13) History of lung cancer Diagnosis: Secondary (14) COPD (chronic obstructive pulmonary disease) Diagnosis: Secondary Chief Complaint: Cardiac arrest with anoxic brain injury Travel History International Travel<30 Days: No Contact w/Intl Traveler <30 Da: No Traveled to Known Affected Are: No Sepsis Criteria SIRS Criteria (2 or more): Temp > 100.9 or < 96.8, Heart rate over 90 Sepsis Criteria (SIRS+source): Infect source susp/known Severe Sepsis (+one): Organ Dysfunction, Hypoperfusion, Lactate >2 Multiple Organ Dysfunction Syn: Evidence -2 organs failing Criteria Outcome: Meets septic shock criteria, Meets multiple organ dys. criteria History of Present Illness Patient is an 81-year-old female with past medical history significant for lung cancer, COPD, continued smoking was brought to the emergency department following a cardiac arrest. Apparently patient was asymptomatic today morning but she vomited a large amount of blood and went into cardiac arrest. Per patient's there was a massive amount of blood in the kitchen. ACLS protocol was followed by the EMS and patient received total 4 rounds of epi as well as CPR by EMS, ROSC was obtained just prior to arrival. On arrival, the tube was changed out for an ET tube. At the time of tube exchange there was a large amount of blood coming out of her stomach. She is given 1 unit of emergency release blood. Started on Levophed, followed by epinephrine. Patient sustained another episode cardiac arrest in the ER and ACLS protocol was initiated. Total CPR time according to the ED physician was approximately 35-40 minutes. Patient was unresponsive without pupillary response. Patient has a history of aortic aneurysm and a stat CT angiogram of the aorta was ordered. While in the CAT scan patient developed another cardiac arrest, and I met the patient in the CAT scan. Active ongoing CPR, and one round of epinephrine and patient had ROSC. Patient was emergently moved to the ICU where I fully evaluated her. Patient had sustained severe anoxic brain injury there is no pupillary reflex no corneal response and no withdrawal to painful stimuli. It was also very difficult to ventilate the patient with high vent settings, lung compliance was very poor. I discussed with the radiology. I aortogram has shown a large left lower pneumothorax, infected bleb on the left upper lobe, extensive bilateral consolidation, large amount of intra-and extraperitoneal air. I placed an emergency left chest tube with improvement in lung dynamics. GI consulted by ED. Dr. Flores came to see the patient in the ED, the did not want to pursue any procedures. CT findings and the presentation very concerning for ruptured viscus. I discussed the case with on- call surgeon Dr. Pablo Rosenthal. Dr. Rosenthal and I am in agreement that patient has sustained severe anoxic injury and emergency surgery is not going to be helpful for the patient. After discussion with the he decided to made make her a DNR but continue medical management. Continue antibiotics aztreonam, Flagyl, Levaquin. Review of Systems ROS Limitations: Intubated, Unresponsive Past Family Social History Allergies: Coded Allergies: penicillin G (Verified Allergy, Severe, Hives, 08/05/17) Past Medical History COPD History of lung cancer Hypertension Past Surgical History Right lung lobectomy Bilateral cataract surgery Parathyroid surgery D&C Reported Medications Xalatan Opth Drops (Latanoprost) 0.005% Drops 1 Drop EACH EYE HS Ventolin Hfa 18 GM Inh (Albuterol Sulfate) 90 Mcg/Act Aer 2 Puff INH Q4H PRN Advair Diskus Inh (Fluticasone-Salmeterol Inh) 250-50 Mcg/Blist Aer 1 Puff INH BID Active Ordered Medications Reviewed Family History Heart disease in family Social History Smokes 1-2 cigarettes daily no alcohol use Physical Exam Vital Signs Vital Signs Date Time Temp Pulse Resp B/P (MAP) Pulse Ox O2 Delivery O2 Flow Rate FiO2 08/05/17 15:27 105 115/55 08/05/17 15:27 105 115/55 08/05/17 12:30 0 100 08/05/17 12:29 93.5 102 28 144/ 100 08/05/17 12:14 93.4 103 28 149/75 100 08/05/17 12:11 93.2 101 28 151/74 100 08/05/17 12:03 93.2 100 28 140/76 100 08/05/17 11:59 93.5 102 28 145/75 (98) 100 100 08/05/17 11:48 93.2 104 28 134/73 100 08/05/17 11:37 93.4 103 28 149/76 (100) 100 Ventilator 100 08/05/17 11:31 93.6 28 133/80 (97) 100 Ventilator 100 08/05/17 11:20 100 100 08/05/17 11:13 95.8 114 28 133/73 100 08/05/17 11:10 123 28 122/74 (90) 100 Ventilator 100 08/05/17 10:45 93.4 08/05/17 10:39 128 28 156/79 100 08/05/17 10:24 109 16 85/48 100 08/05/17 10:21 100 100 08/05/17 09:53 100 08/05/17 09:45 138 Physical Exam GENERAL: Elderly female critically ill unresponsive on the ventilator SKIN: warm/dry. No wounds or signs of infection. HEAD: Atraumatic. Normocephalic. EYES: Pupils fixed, 5 mm, no corneal reflex ENT: Oral cavity with dry blood. ET tube in place with copious bloody secretions NECK: Trachea midline. No JVD. CARDIOVASCULAR: Tachycardic No murmur appreciated. Currently on Levophed at 10 mcg/m, epinephrine at 10 mcg/m RESPIRATORY: On PC/AC. Air entry is very diminished with expiratory wheezes. Very difficult to ventilate tidal volumes highly 150-200 mL on high vent support. GASTROINTESTINAL: Abdomen distended, tense. Tympanic to percussion MUSCULOSKELETAL: No obvious deformities. No clubbing. No cyanosis. No edema. NEURO; GCS 3T. pupils are 5 mm and fixed. No corneal reflex. No withdrawal to deep pain. No cough or gag Laboratory Laboratory Tests Test 08/05/17 09:55 08/05/17 10:24 08/05/17 15:20 White Blood Count 9.6 Red Blood Count 3.14 Hemoglobin 10.0 Bedside Hemoglobin 10.2 Hematocrit 32.4 Bedside Hematocrit 30.0 Mean Corpuscular Volume 102.9 Mean Corpuscular Hemoglobin 31.7 Mean Corpuscular Hemoglobin Concent 30.8 Red Cell Distribution Width 16.5 Platelet Count 240 Mean Platelet Volume 8.0 Neutrophils (%) (Auto) 30.0 Lymphocytes (%) (Auto) 64.7 Monocytes (%) (Auto) 4.7 Eosinophils (%) (Auto) 0.2 Basophils (%) (Auto) 0.4 Neutrophils # (Auto) 2.9 Lymphocytes # (Auto) 6.2 Monocytes # (Auto) 0.5 Eosinophils # (Auto) 0.0 Basophils # (Auto) 0.0 CBC Comment AUTO DIFF Differential Total Cells Counted 100 Neutrophils % (Manual) 36 Band Neutrophils % 1 Lymphocytes % 56 Monocytes % 6 Eosinophils % 1 Neutrophils # (Manual) 3.6 Differential Comment FINAL DIFF MANUAL Platelet Estimate NORMAL Platelet Morphology Comment NORMAL Prothrombin Time 11.6 Prothromb Time International Ratio 1.1 Activated Partial Thromboplast Time 49.1 Bedside Sodium 141 Blood Urea Nitrogen 14 Creatinine 1.08 Random Glucose 302 Total Protein 5.8 Albumin 2.5 Calcium Level 8.8 Alkaline Phosphatase 68 Aspartate Amino Transf (AST/SGOT) 26 Alanine Aminotransferase (ALT/SGPT) 23 Total Bilirubin 0.2 Sodium Level 143 Potassium Level 4.9 Chloride Level 105 Carbon Dioxide Level 22.9 Bedside Potassium 4.9 Bedside Chloride 103 Anion Gap 15 Bedside Blood Urea Nitrogen 14 Bedside Creatinine 0.9 Estimat Glomerular Filtration Rate 49 Bedside Glucose 281 Lactic Acid Level 13.1 Total Creatine Kinase 82 Troponin I 0.02 Lipase 184 Blood Gas Puncture Site LT RADIAL Blood Gas Patient Temperature 98.6 Blood Gas HCO3 20 Blood Gas Base Excess -12.9 Blood Gas Oxygen Saturation 98 Arterial Blood pH 6.83 Arterial Blood Partial Pressure CO2 125 Arterial Blood Partial Pressure O2 418 Arterial Blood Oxygen Content 12.0 Arterial Blood Carboxyhemoglobin 0.0 Arterial Blood Methemoglobin 1.1 Blood Gas Hemoglobin 7.9 Oxygen Delivery Device VENTILATOR Blood Gas Ventilator Setting PCAC 16/32IP/5+/0.8I Blood Gas Inspired Oxygen 100 Date/Time Source Procedure Growth Status 08/05/17 10:05 Blood Peripheral Aerobic Blood Culture Pending Received 08/05/17 10:05 Blood Peripheral Anaerobic Blood Culture Pending Received Result Diagram: 08/05/1795408/05/[address] angiogram of abdomen pelvis and chest shows no aortic dissection. Significant consolidation of bilateral lung, infected bleb left upper lobe, large left lower pneumothorax, large amount of intra-and extraperitoneal air in the abdomen Septic Shock Reassessment Septic shock perfusion: reassessment completed Caprini VTE Risk Assessment Caprini VTE Risk Assessment: Mod/High Risk (score >= 2) Caprini Risk Assessment Model Point Value = 1 Point Value = 2 Point Value = 3 Point Value = 5 Age 41-60 Minor surgery BMI > 25 kg/m2 Swollen legs Varicose veins or History of unexplained or recurrent spontaneous Oral contraceptives or hormone replacement Sepsis (< 1 month) Serious lung disease, including pneumonia (< 1 month) Abnormal pulmonary function Acute myocardial infarction Congestive heart failure (< 1 month) History of inflammatory bowel disease Medical patient at bed rest Age 61-74 Arthroscopic surgery Major open surgery (> 45 min) Laparoscopic surgery (> 45 min) Malignancy Confined to bed (> 72 hours) Immobilizing plaster cast Central venous access Age >= 75 History of VTE Family history of VTE Factor V Leiden Prothrombin [id number] Lupus anticoagulant Anticardiolipin antibodies Elevated serum homocysteine Heparin-induced thrombocytopenia Other congenital or acquired thrombophilia Stroke (< 1 month) Elective arthroplasty Hip, pelvis, or leg fracture Acute spinal cord injury (< 1 month) Prophylaxis Regimen Total Risk Factor Score Risk Level Prophylaxis Regimen 0-1 Low Early ambulation 2 Moderate Order ONE of the following: *Sequential Compression Device (SCD) *Heparin 5000 units SQ BID 3-4 Higher Order ONE of the following medications: *Heparin 5000 units SQ TID *Enoxaparin/Lovenox 40 mg SQ daily (WT < 150 kg, CrCl > 30 mL/min) *Enoxaparin/Lovenox 30 mg SQ daily (WT < 150 kg, CrCl > 10-29 mL/min) *Enoxaparin/Lovenox 30 mg SQ BID (WT < 150 kg, CrCl > 30 mL/min) AND/OR *Sequential Compression Device (SCD) 5 or more Highest Order ONE of the following medications: *Heparin 5000 units SQ TID (Preferred with Epidurals) *Enoxaparin/Lovenox 40 mg SQ daily (WT < 150 kg, CrCl > 30 mL/min) *Enoxaparin/Lovenox 30 mg SQ daily (WT < 150 kg, CrCl > 10-29 mL/min) *Enoxaparin/Lovenox 30 mg SQ BID (WT < 150 kg, CrCl > 30 mL/min) AND *Sequential Compression Device (SCD) Assessment and Plan Assessment and Plan NEURO: Severe anoxic brain injury following cardiac arrest - Unable to do brain imaging studies due to hemodynamic instability - Clinically patient has sustained severe anoxic brain injury, aware - Close neuro monitoring, avoid sedatives RESP: Acute hypoxemic respiratory failure Large left-sided pneumothorax Severe multilobar pneumonia History of lung cancer - PC/AC. Titrated inspiratory pressure to keep tidal volume 300-350. Titrated FiO2 to keep sat above 90% - Emergently left pigtail chest tube placed with improvement in pneumothorax - DuoNeb every 4 hours scheduled and when necessary - Stress dose steroids - See ID section for ABX CV: Severe septic and hemorrhagic shock Severe lactic acidosis - Normal saline IV fluids 2L NS bolus, maintenance fluid bicarbonate infusion at 150 ML per hour - Trend lactic acid - Currently on Levophed at 10 mcg/m and epinephrine at 10 mcg/m. No escalation of care due to pulmonary poor prognosis GI: Massive upper GI bleed Probable perforated viscus Peritonitis - CT angiogram showed intra-and extraperitoneal air - Clinical presentation and exam and imaging findings consistent with probable ruptured viscus - I discussed with general surgery Dr. Pablo Rosenthal. Both of us agree that due to severe anoxic brain injury patient will not benefit from surgical intervention - Continue supportive care with fluid resuscitation and IV antibiotics and if there is neuro recovery consider surgical intervention - NG tube to intermittent wall suction - IV Protonix infusion : - Monitor renal function closely. Yao catheter. ID: Septic shock Peritonitis from probable perforated viscus Multilobar pneumonia - Continue broad-spectrum antibiotics with Azactam Flagyl and Levaquin and give single dose of vancomycin - Check blood cultures sputum culture HEME: - Monitor CBC, CMP, coags - s/p 2U PRBC, 1 FFP ENDO: - Replace electrolytes as needed PROPH: - Bilateral lower extremity SCDs. Avoid chemical DVT prophylaxis due to hemorrhagic shock. IV Protonix LINES: - Femoral central line placed in the ED 08/05/17. Place arterial line CC time 92 min including multiple visits and discussion with multiple specialist Patient remains extremely critically ill with severe anoxic injury refractory shock and probable visceral perforation. Since she has sustained severe irreversible anoxic injury she is not a candidate for any surgical intervention. I have discussed with this with the patient's several times. He now indicates that after his daughter's [facility] from [facility] he may consider withdrawal of life support. He requests aggressive care until then Code Status DNR Discussed Condition With Ariadna Baca Problem Qualifiers (1) COPD (chronic obstructive pulmonary disease): Raf Watters MD Aug 05, 2017 16:06
[2017-08-05] MEDS ORDERED: SODIUM BICARBONATE 8.4% INJ 150 MEQ in WATER STERILE FOR INJ 850 ML IV SCH (16:15)
[2017-08-05] MEDS ORDERED: SODIUM BICARBONATE 8.4% INJ 100 ML ONE (16:27)
[2017-08-05] MEDS ORDERED: POTASSIUM CHLOR 40 MEQ PREMIX 100 ML IV SCH (16:30)
[2017-08-05] MEDS ORDERED: RESP: ALBUTEROL 2.5 MG/IPRATROPIUM 0.5 MG NEB (PRN) NEB (16:45)
[2017-08-05] MEDS ORDERED: ENOXAPARIN SODIUM 40 MG/0.4 ML SYRINGE SQ SCH (17:00)
[2017-08-05] MEDS ORDERED: VANCOMYCIN 1 GM/200 ML INJ 200 ML IV ONE (17:00)
[2017-08-05] MEDS ORDERED: VANCOMYCIN 1,000 MG/NS 250 ML IV ONE ×2 (17:15)
[2017-08-05 17:33] LABS: BASOPHIL % 0.1 % (0.0-2.0); HEMATOCRIT 37.3 % (35.0-46.0); HEMOGLOBIN 11.8 GM/DL (11.6-15.3); LYMPH % 4.1 % (9.0-44.0); MEAN CELL VOLUME 94.5 FL (80.0-100.0); MEAN CORPUSCULAR HGB CONC 31.8 % (32.0-36.0); MEAN PLATELET VOLUME 7.7 FL (7.0-11.0); MONO % 2.1 % (0.0-8.0); MONOCYTE # 0.5 TH/MM3 (0-0.9); NEUT % 93.7 % (16.0-70.0); PLATELET COUNT 241 TH/MM3 (150-450); RED BLOOD COUNT 3.94 MIL/MM3 (4.00-5.30); RED CELL DISTRIBUTION WIDTH 17.3 % (11.6-17.2); WHITE BLOOD COUNT 23.6 TH/MM3 (4.0-11.0)
[2017-08-05 18:06] LABS: ALBUMIN 2.3 GM/DL (3.4-5.0); BICARBONATE 31.8 MEQ/L (21.0-32.0); CALCIUM 6.4 MG/DL (8.5-10.1); CREATININE 1.32 MG/DL (0.50-1.00); TOTAL BILIRUBIN ADULT 0.6 MG/DL (0.2-1.0); TOTAL PROTEIN 5.2 GM/DL (6.4-8.2)
[2017-08-05 18:11] LABS: CALCIUM-PROTEIN CORRECTED 7.3 MG/DL (8.5-10.1); TROPONIN I 2.33 NG/ML (0.02-0.05)
[2017-08-05] MEDS ORDERED: CHLORHEXIDINE 0.12% (ORAL KIT) 15 ML CUP MT SCH (20:00)
[2017-08-05] MEDS ORDERED: LATANOPROST 0.005% OPHT SOLN 2.5 ML BTL EACH EYE SCH (21:00)
[2017-08-05] MEDS ORDERED: SODIUM CHLORIDE 0.9% FLUSH 10 ML FLUSH IV FLUSH SCH (21:00)
[2017-08-05] MEDS ORDERED: HYDROCORTISONE SOD SUCCINATE 100 MG VIAL IV SCH (22:00)
[2017-08-05] MEDS ORDERED: MORPHINE SULFATE 4 MG/ML INJ IV PUSH PRN (22:30)
[2017-08-05] MEDS ORDERED: LORazepam 2 MG/ML VIAL IV PUSH PRN (22:30)
[2017-08-06] MEDS ORDERED: CHLORHEXIDINE GLUCONATE 2 % 1 PACK (2 CLOTHS) TOP SCH (04:00)
--- NOTE | 2017-08-06 07:32 | DEATH SUM ---
Summary Demographics Date Pronounced : Aug 05, 2017 Time Of : 2300 Pronounced By: JUNIOR WALLACE MD Preliminary Cause of : Cardiac arrest Raf Watters MD Aug 06, 2017 07:32
--- NOTE | 2017-08-06 07:35 | HHI.DS ---
Summary Note Date of : Aug 05, 2017 Time Of : 2299 Admission Date Aug 05, 2017 at 12:45 Admitting Diagnosis s/p cardiac arrest, GI bleed Diagnosis at Time of : (1) Cardiac arrest ICD Code: I46.9 - Cardiac arrest, cause unspecified Diagnosis: Principal (2) Anoxic brain damage ICD Code: G93.1 - Anoxic brain damage, not elsewhere classified Diagnosis: Principal (3) Acute respiratory failure with hypoxia ICD Code: J96.01 - Acute respiratory failure with hypoxia Diagnosis: Principal (4) Free intraperitoneal air ICD Code: K66.8 - Other specified disorders of peritoneum Diagnosis: Principal (5) UGIB (upper gastrointestinal bleed) ICD Code: K92.2 - Gastrointestinal hemorrhage, unspecified Diagnosis: Principal (6) Probable ruptured viscus Diagnosis: Principal (7) Shock ICD Code: R57.9 - Shock, unspecified Diagnosis: Principal (8) Lactic acidemia ICD Code: E87.2 - Acidosis Diagnosis: Principal (9) COPD with acute exacerbation ICD Code: J44.1 - Chronic obstructive pulmonary disease with (acute) exacerbation Diagnosis: Principal (10) Septic shock ICD Code: A41.9 - Sepsis, unspecified organism; R65.21 - Severe sepsis with septic shock Diagnosis: Principal (11) Pneumothorax, left ICD Code: J93.9 - Pneumothorax, unspecified Diagnosis: Principal (12) multilobar pneumonia Diagnosis: Principal (13) History of lung cancer ICD Code: Z85.118 - Personal history of other malignant neoplasm of bronchus and lung Diagnosis: Secondary (14) COPD (chronic obstructive pulmonary disease) ICD Code: J44.9 - Chronic obstructive pulmonary disease Diagnosis: Secondary Procedures Left pigtail chest tube placement 08/05/17 Intubation, central line placement 08/05/17 by ED physician Brief History Patient is an 81-year-old female with past medical history significant for lung cancer, COPD, continued smoking was brought to the emergency department following a cardiac arrest. Apparently patient was asymptomatic today morning but apparently she vomited a large amount of blood and went into cardiac arrest. Per patient's there was a massive amount of blood in the kitchen. ACLS protocol was followed by the EMS and patient received total 4 rounds of epi as well as CPR by EMS, ROSC was obtained just prior to arrival. On arrival, the tube was changed out for an ET tube. At the time of tube exchange there was a large amount of blood coming out of her stomach. She is given 1 unit of emergency release blood. Started on Levophed, followed by epinephrine. Patient sustained another episode cardiac arrest in the ER and ACLS protocol was initiated. Total CPR time according to the ED physician was approximately 35-40 minutes. Patient was unresponsive without pupillary response. Patient has a history of aortic aneurysm and a stat CT angiogram of the aorta was ordered. While in the CAT scan patient developed another cardiac arrest, and I met the patient on the CAT scan. Active ongoing CPR, and one round of epinephrine and patient had ROSC. Patient was emergently moved to the ICU where I fully evaluated her. Patient had sustained severe anoxic brain injury there is no pupillary reflex no corneal response and no withdrawal to painful stimuli. It was also very difficult to ventilate the patient with high vent settings, lung compliance was very poor. I discussed with the radiology. I aortogram has shown a large left lower pneumothorax, infected bleb on the left upper lobe, extensive bilateral consolidation, large amount of intra-and extraperitoneal air. I placed an emergency left chest tube with improvement in lung dynamics. GI consulted by ED. Dr. Flores came to see the patient, says the does not want to pursue any procedures. CT findings and the presentation very concerning for ruptured viscus. I discussed the case with on- call surgeon Dr. Pablo Rosenthal. Dr. rosenthal and I am in agreement that patient has sustained severe anoxic injury and emergency surgery is not going to be helpful for the patient. After discussion with the he decided to made make her a DNR but continue medical management. Continue antibiotics aztreonam, Flagyl, Levaquin. CBC/BMP: 08/05/17 1711 08/05/17 1711 Significant Findings Laboratory Tests Test 08/05/17 09:55 08/05/17 10:24 08/05/17 14:40 08/05/17 15:20 Red Blood Count 3.14 MIL/MM3 (4.00-5.30) Hemoglobin 10.0 GM/DL (11.6-15.3) Bedside Hemoglobin 10.2 G/DL (11.6-15.3) Hematocrit 32.4 % (35.0-46.0) Bedside Hematocrit 30.0 % (35.0-46.0) Mean Corpuscular Volume 102.9 FL (80.0-100.0) Mean Corpuscular Hemoglobin Concent 30.8 % (32.0-36.0) Lymphocytes (%) (Auto) 64.7 % (9.0-44.0) Lymphocytes # (Auto) 6.2 TH/MM3 (1.0-4.8) Lymphocytes % 56 % (9-44) Activated Partial Thromboplast Time 49.1 SEC (24.3-30.1) Creatinine 1.08 MG/DL (0.50-1.00) Random Glucose 302 MG/DL (74-106) Total Protein 5.8 GM/DL (6.4-8.2) Albumin 2.5 GM/DL (3.4-5.0) Estimat Glomerular Filtration Rate 49 ML/MIN (>89) Bedside Glucose 281 MG/DL (68-110) Lactic Acid Level 13.1 mmol/L (0.4-2.0) 4.5 mmol/L (0.4-2.0) Blood Gas HCO3 20 mmol/L (22-26) Blood Gas Base Excess -12.9 mmol/L (-2-2) Arterial Blood pH 6.83 (7.380-7.420) Arterial Blood Partial Pressure CO2 125 mmHg (38-42) Arterial Blood Partial Pressure O2 418 mmHG (61-120) Blood Gas Hemoglobin 7.9 G/DL (12.0-16.0) Test 08/05/17 16:00 08/05/17 17:11 Blood Gas Base Excess -6.8 mmol/L (-2-2) Arterial Blood pH 7.10 (7.380-7.420) Arterial Blood Partial Pressure CO2 74 mmHg (38-42) Arterial Blood Partial Pressure O2 165 mmHg (61-120) Blood Gas Hemoglobin 11.4 G/DL (12.0-16.0) White Blood Count 23.6 TH/MM3 (4.0-11.0) Red Blood Count 3.94 MIL/MM3 (4.00-5.30) Mean Corpuscular Hemoglobin Concent 31.8 % (32.0-36.0) Red Cell Distribution Width 17.3 % (11.6-17.2) Neutrophils (%) (Auto) 93.7 % (16.0-70.0) Lymphocytes (%) (Auto) 4.1 % (9.0-44.0) Neutrophils # (Auto) 22.0 TH/MM3 (1.8-7.7) Creatinine 1.32 MG/DL (0.50-1.00) Random Glucose 389 MG/DL (74-106) Total Protein 5.2 GM/DL (6.4-8.2) Albumin 2.3 GM/DL (3.4-5.0) Calcium Level 6.4 MG/DL (8.5-10.1) Aspartate Amino Transf (AST/SGOT) 272 U/L (15-37) Alanine Aminotransferase (ALT/SGPT) 127 U/L (10-53) Potassium Level 5.6 MEQ/L (3.5-5.1) Estimat Glomerular Filtration Rate 39 ML/MIN (>89) Lactic Acid Level 4.6 mmol/L (0.4-2.0) Protein Corrected Calcium 7.3 MG/DL (8.5-10.1) Troponin I 2.33 NG/ML (0.02-0.05) Imaging CT angiogram of abdomen pelvis and chest shows no aortic dissection. Significant consolidation of bilateral lung, infected bleb left upper lobe, large left lower pneumothorax, large amount of intra-and extraperitoneal air in the abdomen Hospital Course Patient is an 81-year-old female with past medical history significant for lung cancer, COPD, continued smoking was brought to the emergency department following a cardiac arrest. Apparently patient was asymptomatic today morning but apparently she vomited a large amount of blood and went into cardiac arrest. Per patient's there was a massive amount of blood in the kitchen. ACLS protocol was followed by the EMS and patient received total 4 rounds of epi as well as CPR by EMS, ROSC was obtained just prior to arrival. On arrival, the tube was changed out for an ET tube. At the time of tube exchange there was a large amount of blood coming out of her stomach. She is given 1 unit of emergency release blood. Started on Levophed, followed by epinephrine. Patient sustained another episode cardiac arrest in the ER and ACLS protocol was initiated. Total CPR time according to the ED physician was approximately 35-40 minutes. Patient was unresponsive without pupillary response. Patient has a history of aortic aneurysm and a stat CT angiogram of the aorta was ordered. While in the CAT scan patient developed another cardiac arrest, and I met the patient on the CAT scan. Active ongoing CPR, and one round of epinephrine and patient had ROSC. Patient was emergently moved to the ICU where I fully evaluated her. Patient had sustained severe anoxic brain injury there is no pupillary reflex no corneal response and no withdrawal to painful stimuli. It was also very difficult to ventilate the patient with high vent settings, lung compliance was very poor. I discussed with the radiology. I aortogram has shown a large left lower pneumothorax, infected bleb on the left upper lobe, extensive bilateral consolidation, large amount of intra-and extraperitoneal air. I placed an emergency left chest tube with improvement in lung dynamics. GI consulted by ED. Dr. Flores came to see the patient, says the does not want to pursue any procedures. CT findings and the presentation very concerning for ruptured viscus. I discussed the case with on- call surgeon Dr. Pablo Rosenthal. Dr. rosenthal and I am in agreement that patient has sustained severe anoxic injury and emergency surgery is not going to be helpful for the patient. After discussion with the he decided to made make her a DNR but continue medical management. Continue antibiotics aztreonam, Flagyl, Levaquin. I had discussions multiple times with and patient's sister. indicated after the daughters arrived from [place] he wants to withdraw active life support and make his comfortable due to futility. According to his wishes active support was withdrawn approximately around 2020 on 08/05/17, and patient at 2300 on 07/18/17 Raf Watters MD Aug 06, 2017 07:35
== END 2017-08-05 23:00 | disposition expired | DRG 871 ==
LOC: NEPE 09:45 → NEDA 12:45 → HIME 13:10
PROVIDERS: ADMIT Internal Medicine; ATTEND Internal Medicine
PROC: 0BH17EZ Insertion of Endotracheal Airway into Trachea, Via Natural or Artificial Opening (ICD-10-PCS; principal; 2017-08-05)
PROC: 5A1935Z Respiratory Ventilation, Less than 24 Consecutive Hours (ICD-10-PCS; 2017-08-05)
PROC: 5A12012 Performance of Cardiac Output, Single, Manual (ICD-10-PCS; 2017-08-05)
PROC: 06HY33Z Insertion of Infusion Device into Lower Vein, Percutaneous Approach (ICD-10-PCS; 2017-08-05)
PROC: 30233N1 Transfusion of Nonautologous Red Blood Cells into Peripheral Vein, Percutaneous Approach (ICD-10-PCS; 2017-08-05)
PROC: 30233K1 Transfusion of Nonautologous Frozen Plasma into Peripheral Vein, Percutaneous Approach (ICD-10-PCS; 2017-08-05)
PROC: 0W9B30Z Drainage of Left Pleural Cavity with Drainage Device, Percutaneous Approach (ICD-10-PCS; 2017-08-05)
DX: A41.9 Sepsis, unspecified organism (principal); R65.21 Severe sepsis with septic shock; R57.8 Other shock; J96.01 Acute respiratory failure with hypoxia; I46.9 Cardiac arrest, cause unspecified; J18.9 Pneumonia, unspecified organism; G93.1 Anoxic brain damage, not elsewhere classified; K65.9 Peritonitis, unspecified; K92.0 Hematemesis; J44.0 Chronic obstructive pulmonary disease with (acute) lower respiratory infection; E87.2 Acidosis; J93.9 Pneumothorax, unspecified; J44.1 Chronic obstructive pulmonary disease with (acute) exacerbation; F17.210 Nicotine dependence, cigarettes, uncomplicated; I71.4 Abdominal aortic aneurysm, without rupture; Z66 Do not resuscitate; I10 Essential (primary) hypertension; H40.9 Unspecified glaucoma; M19.90 Unspecified osteoarthritis, unspecified site; Z85.118 Personal history of other malignant neoplasm of bronchus and lung
CPT/HCPCS: 31500; 32551; 36430; 36556; 36600; 36620; 43752; 51702; 71045; 71275; 74018; 74174; 76937; 80048; 80053; 82550; 82805; 83605; 83690; 84484; 85007; 85025; 85027; 85610; 85730; 86850; 86900; 86901; 86920; 86927; 87040; 87205; 87641; 93005; 94002; 94640; 94664; 96365; 96367; 96368; 96372; 96375; 96376; C9113; J0171; J0330; J0692; J1720; J1956; J2270; J2354; J3370; J3480; J7030; J7050; J7060; P9016; P9017; Q9967